=== PATIENT | female | born 1935 | race Caucasian/White ===

== ENCOUNTER 2020-11-14 13:40 | Inpatient (IN) ==
--- NOTE | 2020-11-14 14:37 | Emergency Department Note ---
History of Present Illness General Chief complaint: Weakness Stated complaint: WEAKNESS, VOMITING Time Seen by Provider: 11/14/20 14:19 Source: patient and family (Niece) History of Present Illness Provider complaint: Generalized weakness Onset (ago): week(s) 2 Location: upper extremity, lower extremity, left and right Pain Consistency: + constant (Worsening past 2 days) Maximum Pain Intensity: 0 Quality: + other (Generalized weakness) Relieved By: + none Associated symptoms: + cough (Had a cough which was dry and nonproductive last week resolved on Friday), + fever/chills (Temperature 100 last night), + loss of appetite, + nausea/vomiting (Nausea for a week with vomiting yesterday), + shortness of breath (X3 days) and + weakness; no chest pain and no headaches This is an 84-year-old female who presents with generalized weakness for the past 2 weeks. She states that it has been getting worse over the past 2 days. She states that she can barely stand today and she has been having to use a cane to get around over the past week. She lives with her niece. She states she has not been eating or drinking very much for the past week. She states she feels nauseated anytime she tries to eat anything. She did throw up yesterday. She did have a bowel movement yesterday which was very hard as well. She denies any diarrhea. She denies any abdominal pain. She states that she has no burning on urination but she feels like she has to go frequently and not much comes out. It is yellow. This has been going on for a week. She had a cough last week. It was a dry cough which lasted 3 days and ended on Friday. She is not coughing anymore. She does state that she feels short of breath for the past 3 days which is worse with any effort. She denies any chest discomfort or pain. She did have a tactile fever and chills at home. She states that her temperature was 100 last night. She has not gotten her Covid vaccinations and does not plan to. She does not know of any contact with any one with Covid. S he also noticed a rash to her upper thighs today. It is not itchy or painful. Home Medications Medication Instructions Recorded Confirmed Type alendronate 70 mg PO WK 11/14/20 11/14/20 History atorvastatin 20 mg PO QDL 11/14/20 11/14/20 History calcium carbonate-vitamin D3 1 tab PO QAM 11/14/20 11/14/20 History [Calcium 600 + D(3)] levothyroxine 25 mcg PO QAM 11/14/20 11/14/20 History lisinopril 10 mg PO QAM 11/14/20 11/14/20 History loratadine [Claritin] 10 mg PO DAILY PRN 11/14/20 11/14/20 History metformin 1,000 mg PO QAM 11/14/20 11/14/20 History multivitamin with minerals 1 tab PO QAM 11/14/20 11/14/20 History omega 3-wor-svf-fish oil [Fish Oil] 1 cap PO QAM 11/14/20 11/14/20 History venlafaxine 225 mg PO QAM 11/14/20 11/14/20 History Allergies Allergy/AdvReac Type Severity Reaction Status Date / Time peach Allergy Severe FACIAL Verified 11/14/20 15:58 SWELLING Sulfa (Sulfonamide Allergy Severe DIFFICULTY Verified 11/14/20 15:58 Antibiotics) BREATHING sulfamethoxazole Allergy Severe DIFFICULTY Verified 11/14/20 15:58 BREATHING Past Med/Surg History Medical History Breast cancer Diabetes High cholesterol Surgical History H/O mastectomy H/O: hysterectomy Social History Smoking Status: Never smoker Preferred Language: Iranian Feels Safe at Home: Yes Review of Systems See HPI for pertinent positives & negatives. and A total of 10 systems reviewed and were otherwise negative Physical Exam Vital Signs Vital Signs - 24 hr 11/14/20 13:42 11/14/20 14:20 11/14/20 14:38 Temperature 37 C Temperature Source Temporal Artery Scan Pulse Rate 94 H Pulse Rate from SpO2 Sensor Respiratory Rate 17 16 Respiratory Effort / Characteristics Non-Labored Non-Labored Spontaneous Respiratory Depth Normal Blood Pressure 110/63 Blood Pressure Mean 78 Blood Pressure Position Sitting Pulse Oximetry 94 98 Oxygen Delivery Method Room Air Room Air Room Air Sepsis Recent Fever Within 48 Hours No Sepsis New/Unexplained Change in Mental Status No Sepsis Action Taken by Nursing No Action Required 11/14/20 15:14 11/14/20 15:26 11/14/20 15:30 Temperature Temperature Source Pulse Rate 82 81 Pulse Rate from SpO2 Sensor 82 81 Respiratory Rate 13 14 Respiratory Effort / Characteristics Non-Labored Spontaneous Respiratory Depth Blood Pressure 114/55 L 108/57 L Blood Pressure Mean 74 74 Blood Pressure Position Pulse Oximetry 92 90 Oxygen Delivery Method Sepsis Recent Fever Within 48 Hours Sepsis New/Unexplained Change in Mental Status Sepsis Action Taken by Nursing 11/14/20 15:41 11/14/20 16:00 11/14/20 16:09 Temperature Temperature Source Pulse Rate 80 Pulse Rate from SpO2 Sensor 78 Respiratory Rate 18 Respiratory Effort / Characteristics Non-Labored Spontaneous Non-Labored Spontaneous Respiratory Depth Blood Pressure 104/56 L Blood Pressure Mean 72 Blood Pressure Position Pulse Oximetry 97 Oxygen Delivery Method Sepsis Recent Fever Within 48 Hours Sepsis New/Unexplained Change in Mental Status Sepsis Action Taken by Nursing 11/14/20 16:30 11/14/20 17:00 Temperature Temperature Source Pulse Rate 76 82 Pulse Rate from SpO2 Sensor 77 83 Respiratory Rate 15 14 Respiratory Effort / Characteristics Non-Labored Spontaneous Respiratory Depth Blood Pressure 109/56 L 107/54 L Blood Pressure Mean 73 71 Blood Pressure Position Pulse Oximetry 99 99 Oxygen Delivery Method Sepsis Recent Fever Within 48 Hours Sepsis New/Unexplained Change in Mental Status Sepsis Action Taken by Nursing Constitutional: Vital signs reviewed. Eyes: Pupils are equal round reactive to light. Conjunctiva are noninjected. ENT: Pharynx is clear without erythema or exudate. Mucous membranes are very dry. Neck supple without meningeal signs. Respiratory: Clear to auscultation bilaterally. Breath sounds are equal bilaterally. Cardiovascular: Regular rate and rhythm. No rubs or gallops. GI: Soft, nondistended and nontender. Bowel sounds are present. Musculoskeletal: No peripheral edema. No lower extremity tenderness. Integumentary: No cyanosis. or jaundice. Multiple 1 to 2 cm scattered circular erythematous lesions in the upper thighs bilaterally with central beige discoloration. Most consistent with erythema multiforme. No vesicles are noted. Rash is easily blanchable. No rash to the trunk or upper extremities. Neurological: The patient is awake and alert. No focal deficits. Psychiatric: Normal affect. Not anxious appearing. Course Administered Medications Sodium Chloride (Nss) 500 mls @ 125 mls/hr IV .Q4H YOANA Stop: 12/14/20 14:44 Last Admin: 11/14/20 15:39 Dose: 125 mls/hr Documented by: [id number] Discontinued Medications Magnesium Sulfate/Dextrose (Magnesium Sulfate / D5w) 1 gm in 100 mls @ 100 mls/hr IV Q1H YOANA Stop: 11/14/20 17:20 Last Infusion: 11/14/20 18:45 Dose: 0 mls/hr Documented by: [id number] Admin: 11/14/20 16:39 Dose: 100 mls/hr Documented by: [id number] Infusion: 11/14/20 16:39 Dose: 100 mls/hr Documented by: [id number] Admin: 11/14/20 15:39 Dose: 100 mls/hr Documented by: [id number] Dexamethasone 6 mg/ Syringe 1.5 mls @ 1 mls/min IV ONE ONE Stop: 11/14/20 17:27 Last Admin: 11/14/20 17:56 Dose: 1 mls/min Documented by: [id number] Medical Decision Making Differential Diagnosis Sepsis, UTI, acute kidney injury, pneumonia, COVID-19, dehydration, anemia, bowel obstruction, erythema multiforme Medical Records Attestation: I reviewed the patient's medical records. I did perform a limited focused review of portions of the patient's old chart on the electronic medical record. The patient has had no recent pertinent visits to this hospital. Home Medications Current Medication List: was personally reviewed by me Laboratory Data Attestation: I reviewed the patient's lab results. Result diagrams: 11/14/20 14:15 11/14/20 14:15 Lab Results 11/14/20 11/14/20 11/14/20 Range/Units 14:15 14:15 14:15 WBC 6.30 (4.8-10.8) K/uL RBC 4.47 (4.2-5.4) M/uL Hgb 13.4 (12.0-16.0) g/dL Hct 38.9 (37-47) % MCV 87.0 (80-100) fL MCH 30.0 (25-34) pg MCHC 34.4 (32-36) g/dL RDW Std Deviation 43.2 (36.4-46.3) fL RDW Coeff of Irasema 13.5 (11.5-14.5) % Plt Count 176 (130-400) K/uL MPV 10.8 H (7.4-10.4) fL Immature Gran % (Auto) 0.2 % Neut % (Auto) 77.4 % Lymph % (Auto) 9.5 % [place] % (Auto) 12.9 % Eos % (Auto) 0.0 % Baso % (Auto) 0.0 % Neut # (Auto) 4.88 (1.4-6.5) K/uL Lymph # (Auto) 0.60 L (1.2-3.4) K/uL [place] # (Auto) 0.81 H (0.11-0.59) K/uL Eos # (Auto) 0.00 (0-0.5) K/uL Baso # (Auto) 0.00 (0-0.2) K/uL Immature Gran # (Auto) 0.01 (0.00-0.02) K/uL PT 9.9 (9.0-12.0) Seconds INR 1.0 (0.9-1.1) APTT 26.0 (21.0-31.0) Seconds PTT Ratio 1.0 Sodium 131 L (136-145) mmol/L Potassium 3.8 (3.5-5.1) mmol/L Chloride 97 L (98-107) mmol/L Carbon Dioxide 28 (21-32) mmol/L Anion Gap 6.0 (3-11) BUN 14 (7-18) mg/dl Creatinine 0.98 (0.6-1.2) mg/dl Est Cr Clr Drug Dosing Not Reportable Est GFR ( Amer) 61.8 Est GFR (Non-Af Amer) 53.3 BUN/Creatinine Ratio 13.7 (10-20) Glucose 176 H (70-99) mg/dl Lactate (0.4-2.0) mmol/L Calcium 8.3 L (8.5-10.1) mg/dl Magnesium 1.1 L (1.8-2.4) mg/dl Total Bilirubin 0.5 (0.2-1) mg/dl AST 24 (15-37) U/L ALT 22 (12-78) U/L Alkaline Phosphatase 59 (45-117) U/L Troponin I < 0.015 (0-0.045) ng/ml Total Protein 6.7 (6.4-8.2) gm/dl Albumin 3.0 L (3.4-5.0) gm/dl Globulin 3.7 (2.5-4.0) gm/dl Albumin/Globulin Ratio 0.8 L (0.9-2) Urine Color Urine Appearance (Clear) Urine pH (4.5-7.5) Ur Specific [place] (1.000-1.030) Urine Protein (Negative) Urine Glucose (UA) (Negative) Urine Ketones (Negative) Urine Blood (Negative) Urine Nitrite (Negative) Urine Bilirubin (Negative) Urine Urobilinogen (Negative) Ur Leukocyte Esterase (Negative) Urine WBC (Auto) (0-5) /hpf Urine RBC (Auto) (0-4) /hpf U Hyaline Cast (Auto) (0-5) /lpf U Epithel Cells (Auto) (0-5) /lpf Urine Bacteria (Auto) (Negative) Ur Renal Epithelial Cell COVID-19 Eval Order SARS-CoV-2 (PCR) (Negative) Influenza Type A (PCR) (Neg) Influenza Type B (PCR) (Neg) RSV (RT-PCR) (Neg) 11/14/20 11/14/20 11/14/20 Range/Units 15:05 15:20 15:20 WBC (4.8-10.8) K/uL RBC (4.2-5.4) M/uL Hgb (12.0-16.0) g/dL Hct (37-47) % MCV (80-100) fL MCH (25-34) pg MCHC (32-36) g/dL RDW Std Deviation (36.4-46.3) fL RDW Coeff of Irasema (11.5-14.5) % Plt Count (130-400) K/uL MPV (7.4-10.4) fL Immature Gran % (Auto) % Neut % (Auto) % Lymph % (Auto) % [place] % (Auto) % Eos % (Auto) % Baso % (Auto) % Neut # (Auto) (1.4-6.5) K/uL Lymph # (Auto) (1.2-3.4) K/uL [place] # (Auto) (0.11-0.59) K/uL Eos # (Auto) (0-0.5) K/uL Baso # (Auto) (0-0.2) K/uL Immature Gran # (Auto) (0.00-0.02) K/uL PT (9.0-12.0) Seconds INR (0.9-1.1) APTT (21.0-31.0) Seconds PTT Ratio Sodium (136-145) mmol/L Potassium (3.5-5.1) mmol/L Chloride (98-107) mmol/L Carbon Dioxide (21-32) mmol/L Anion Gap (3-11) BUN (7-18) mg/dl Creatinine (0.6-1.2) mg/dl Est Cr Clr Drug Dosing Est GFR ( Amer) Est GFR (Non-Af Amer) BUN/Creatinine Ratio (10-20) Glucose (70-99) mg/dl Lactate 2.4 H* (0.4-2.0) mmol/L Calcium (8.5-10.1) mg/dl Magnesium (1.8-2.4) mg/dl Total Bilirubin (0.2-1) mg/dl AST (15-37) U/L ALT (12-78) U/L Alkaline Phosphatase (45-117) U/L Troponin I (0-0.045) ng/ml Total Protein (6.4-8.2) gm/dl Albumin (3.4-5.0) gm/dl Globulin (2.5-4.0) gm/dl Albumin/Globulin Ratio (0.9-2) Urine Color Dark Yellow Urine Appearance Clear (Clear) Urine pH 5.0 (4.5-7.5) Ur Specific [place] 1.022 (1.000-1.030) Urine Protein Trace H (Negative) Urine Glucose (UA) Negative (Negative) Urine Ketones 1+ H (Negative) Urine Blood Negative (Negative) Urine Nitrite Negative (Negative) Urine Bilirubin 1+ H (Negative) Urine Urobilinogen Negative (Negative) Ur Leukocyte Esterase Negative (Negative) Urine WBC (Auto) 1-5 (0-5) /hpf Urine RBC (Auto) 0-4 (0-4) /hpf U Hyaline Cast (Auto) 1-5 (0-5) /lpf U Epithel Cells (Auto) >30 H (0-5) /lpf Urine Bacteria (Auto) Negative (Negative) Ur Renal Epithelial Cell Not Reportable COVID-19 Eval Order CovFluRsv at [facility] SARS-CoV-2 (PCR) (Negative) Influenza Type A (PCR) (Neg) Influenza Type B (PCR) (Neg) RSV (RT-PCR) (Neg) 11/14/20 Range/Units 15:20 WBC (4.8-10.8) K/uL RBC (4.2-5.4) M/uL Hgb (12.0-16.0) g/dL Hct (37-47) % MCV (80-100) fL MCH (25-34) pg MCHC (32-36) g/dL RDW Std Deviation (36.4-46.3) fL RDW Coeff of Irasema (11.5-14.5) % Plt Count (130-400) K/uL MPV (7.4-10.4) fL Immature Gran % (Auto) % Neut % (Auto) % Lymph % (Auto) % [place] % (Auto) % Eos % (Auto) % Baso % (Auto) % Neut # (Auto) (1.4-6.5) K/uL Lymph # (Auto) (1.2-3.4) K/uL [place] # (Auto) (0.11-0.59) K/uL Eos # (Auto) (0-0.5) K/uL Baso # (Auto) (0-0.2) K/uL Immature Gran # (Auto) (0.00-0.02) K/uL PT (9.0-12.0) Seconds INR (0.9-1.1) APTT (21.0-31.0) Seconds PTT Ratio Sodium (136-145) mmol/L Potassium (3.5-5.1) mmol/L Chloride (98-107) mmol/L Carbon Dioxide (21-32) mmol/L Anion Gap (3-11) BUN (7-18) mg/dl Creatinine (0.6-1.2) mg/dl Est Cr Clr Drug Dosing Est GFR ( Amer) Est GFR (Non-Af Amer) BUN/Creatinine Ratio (10-20) Glucose (70-99) mg/dl Lactate (0.4-2.0) mmol/L Calcium (8.5-10.1) mg/dl Magnesium (1.8-2.4) mg/dl Total Bilirubin (0.2-1) mg/dl AST (15-37) U/L ALT (12-78) U/L Alkaline Phosphatase (45-117) U/L Troponin I (0-0.045) ng/ml Total Protein (6.4-8.2) gm/dl Albumin (3.4-5.0) gm/dl Globulin (2.5-4.0) gm/dl Albumin/Globulin Ratio (0.9-2) Urine Color Urine Appearance (Clear) Urine pH (4.5-7.5) Ur Specific [place] (1.000-1.030) Urine Protein (Negative) Urine Glucose (UA) (Negative) Urine Ketones (Negative) Urine Blood (Negative) Urine Nitrite (Negative) Urine Bilirubin (Negative) Urine Urobilinogen (Negative) Ur Leukocyte Esterase (Negative) Urine WBC (Auto) (0-5) /hpf Urine RBC (Auto) (0-4) /hpf U Hyaline Cast (Auto) (0-5) /lpf U Epithel Cells (Auto) (0-5) /lpf Urine Bacteria (Auto) (Negative) Ur Renal Epithelial Cell COVID-19 Eval Order SARS-CoV-2 (PCR) POSITIVE A* (Negative) Influenza Type A (PCR) Negative (Neg) Influenza Type B (PCR) Negative (Neg) RSV (RT-PCR) Negative (Neg) Imaging Data Radiologist's Impression: Chest/Abdomen X-ray 11/14/20 14:37 XR abdomen 2V w PA chest HISTORY: 84 years-old Female cough/vomiting eval for pna/obstr acute cough with vomiting COMPARISON: Acute abdominal series radiographs 11/05/2014 TECHNIQUE: Portable AP view of the chest with erect and supine views of the abdomen FINDINGS: Cardiomediastinal and hilar silhouettes are within normal limits. Calcified plaque of the thoracic aorta. No pneumothorax, pleural effusion or overt pulmonary edema. Unchanged interstitial opacities of the lung bases suggestive of atelectasis/scarring. Surgical clip of the left axilla. Bones appear grossly intact. No pneumatosis or pneumoperitoneum. On the supine view there is a geometric central lucency of the abdomen which is not present on the AP view, likely artifactual. Nonobstructive bowel gas pattern. No urolith. Pelvic basin calcifications suggestive of phleboliths. 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 IMPRESSION: 1. No acute process of the chest. 2. Nonobstructive bowel gas pattern. ACT 112: Negative or not required by law. The above report was generated using voice recognition software. It may contain grammatical, syntax or spelling errors. Electronically signed by: Smooth Avila M.D. 11/14/2020 4:34 PM ECG Data Attestation: I personally reviewed and interpreted this ECG as follows: Indication: + weakness Rate (beats per minute): 84 Rhythm: + normal sinus ECG Intervals/blocks: + Short ND (ND interval 104 ms) ECG [place]: + Normal ECG ST segments: no ST elevation ECG Findings: no PVCs MDM Narrative I did evaluate the patient as noted above. The patient is presenting with generalized weakness as well as multiple other symptoms. She has been weak for about 2 weeks but it has been getting worse over the past 2 days. She admits to not eating or drinking very much due to nausea over the past week. She has been urinating infrequently but has urgency. She appears clinically very dehydrated. She has a rash to her upper thighs which appears most likely to be erythema multiforme. It is nonpruritic and nonpainful. It is easily blanchable. It does not resemble erythema migrans. She has also had fever and cold symptoms raising the concern for COVID-19 and sepsis. She was placed in respiratory isolation. IV access was established. I did treat her with normal saline IV. I did place an order for continuous cardiac monitoring. The monitor showed normal sinus rhythm at a rate of 88 bpm. I did order and personally review the patient's 12-lead EKG as described above. She has a shortened ND interval without delta waves. No acute ischemia is noted. I did order and personally reviewed the images of the patient's chest and abdominal x-ray as described above. There is no evidence of pneumonia or bowel obstruction. I did order a urine analysis. She does not have a UTI. I did order and review the patient's blood work as noted in the electronic medical record. CBC does not demonstrate leukocytosis, anemia or thrombocytopenia. Electrolytes are remarkable for a s odium of 131. Also her magnesium is 1.1. I did treat her with 2 g of IV magnesium. Lactate is elevated. Troponin is negative. COVID-19 testing came back positive. I did discuss the test results with the patient's niece. She will be hospitalized for further care and evaluation. The nurse tells me that the O2 saturation dropped to 88% on room air and so she was placed on 2 L of oxygen via nasal cannula. I did treat her with Decadron 6 mg IV. I did discuss the case with the hospitalist and case technician. Impression & Plan COVID-19, Hypomagnesemia, Generalized weakness, Hyponatremia Discharge Plan Visit Data Chief Complaint: Weakness Stated Complaint: WEAKNESS, VOMITING ED Provider: Luis Fernando Bella Discharge Problem: COVID-19, Hypomagnesemia, Generalized weakness, Hyponatremia Patient Disposition: Being Evaluated by Hospitalist Forms Stand Alone Forms: My [facility] Prescriptions Prescriptions: No Action metformin 500 mg tablet 1,000 mg PO QAM RF: 0 venlafaxine 75 mg capsule,extended release 24hr 225 mg PO QAM RF: 0 atorvastatin 20 mg tablet 20 mg PO QDL RF: 0 alendronate 70 mg tablet 70 mg PO WK RF: 0 calcium carbonate-vitamin D3 [Calcium 600 + D(3)] 600 mg(1,500mg) -200 unit Tablet 1 tab PO QAM RF: 0 levothyroxine 25 mcg tablet 25 mcg PO QAM RF: 0 lisinopril 10 mg tablet 10 mg PO QAM RF: 0 multivitamin with minerals Tablet 1 tab PO QAM RF: 0 loratadine [Claritin] 10 mg Tablet 10 mg PO DAILY PRN (Reason: Congestion) RF: 0 omega 3-bqb-lfy-fish oil [Fish Oil] 1,000 mg (120 mg-180 mg) Capsule 1 cap PO QAM RF: 0 Referrals Referrals: Emory Mills MD [Primary Care Provider] -
[2020-11-14] MEDS ORDERED: SODIUM CHLORIDE 0.9% 500 ML IV SCH (14:45)
[2020-11-14 14:55] LABS: Hematocrit (blood only) 38.9 % (37-47); Hemoglobin 13.4 g/dL (12.0-16.0); Immature Granulocytes # (auto) 0.01 K/uL (0.00-0.02); Immature Granulocytes % (auto) 0.2 %; Lymphocytes % (auto) 9.5 %; Mean Corpuscular Hgb Conc 34.4 g/dL (32-36); Mean Platelet Volume 10.8 fL (7.4-10.4); Monocytes # (auto) 0.81 K/uL (0.11-0.59); Monocytes % (auto) 12.9 %; Neutrophils # (auto) 4.88 K/uL (1.4-6.5); Neutrophils % (auto) 77.4 %; Platelet Count 176 K/uL (130-400); RDW Coefficient of Variation 13.5 % (11.5-14.5); RDW Standard Deviation 43.2 fL (36.4-46.3); Red Blood Count 4.47 M/uL (4.2-5.4)
[2020-11-14 15:10] LABS: Alanine Aminotransferase 22 U/L (12-78); Aspartate Aminotransferase 24 U/L (15-37); BUN Creatinine Ratio 13.7 (10-20); Blood Urea Nitrogen 14 mg/dl (7-18); Calcium 8.3 mg/dl (8.5-10.1); Carbon Dioxide 28 mmol/L (21-32); Chloride 97 mmol/L (98-107); Est GFR (African American) 61.8; Est GFR (Non-African American) 53.3; Glucose 176 mg/dl (70-99); Magnesium 1.1 mg/dl (1.8-2.4); Potassium 3.8 mmol/L (3.5-5.1); Sodium 131 mmol/L (136-145)
[2020-11-14 15:11] LABS: Prothrombin Time 9.9 Seconds (9.0-12.0)
[2020-11-14 15:15] LABS: Albumin Globulin Ratio 0.8 (0.9-2); Alkaline Phosphatase 59 U/L (45-117); Bilirubin,Total 0.5 mg/dl (0.2-1); Globulin 3.7 gm/dl (2.5-4.0); Total Protein 6.7 gm/dl (6.4-8.2); Troponin I < 0.015 ng/ml (0-0.045)
[2020-11-14] MEDS: MAGNESIUM SULFATE / D5W 1 GM/100 ML BAG IV SCH ×2 (15:39→16:39)
[2020-11-14 15:58] LABS: Appearance Urine Clear (Clear); Bacteria Urine Automated Negative (Negative); Blood Urine Negative (Negative); Color Urine Dark Yellow; Epithelial Cell Urine Auto >30 /lpf (0-5); Glucose Urine UA Negative (Negative); Ketones Urine 1+ (Negative); Leukocyte Esterase Urine Negative (Negative); Nitrite Urine Negative (Negative); Protein Urine Trace (Negative); RBC Urine Automated 0-4 /hpf (0-4); Specific Gravity Urine 1.022 (1.000-1.030); Urobilinogen Urine Negative (Negative)
[2020-11-14 16:02] LABS: Bilirubin Urine 1+ (Negative)
[2020-11-14 16:12] LABS: Influenza A virus by PCR Negative (Neg); Influenza B virus by PCR Negative (Neg); RSV by PCR Negative (Neg)
[2020-11-14 16:21] LABS: SARS CoV2 RNA(COVID-19) InHosp POSITIVE (Negative)
--- NOTE | 2020-11-14 16:35 | XRay Report ---
XR abdomen 2V w PA chest HISTORY: 84 years-old Female cough/vomiting eval for pna/obstr acute cough with vomiting COMPARISON: Acute abdominal series radiographs 11/05/2014 TECHNIQUE: Portable AP view of the chest with erect and supine views of the abdomen FINDINGS: Cardiomediastinal and hilar silhouettes are within normal limits. Calcified plaque of the thoracic ao rta. No pneumothorax, pleural effusion or overt pulmonary edema. Unchanged interstitial opacities of the lung bases suggestive of atelectasis/scarring. Surgical clip of the left axilla. Bones appear rhea ssly intact. No pneumatosis or pneumoperitoneum. On the supine view there is a geometric central lucency of the ab domen which is not present on the AP view, likely artifactual. Nonobstructive bowel gas pattern. No u rolith. Pelvic basin calcifications suggestive of phleboliths. Severe right and moderate left hip ost eoarthritis. IMPRESSION: 1. No acute process of the chest. 2. Nonobstructive bowel gas pattern. ACT 112: Negative or not required by law. The above report was generated using voice recognition software. It may contain grammatical, syntax o r spelling errors. Electronically signed by: Smooth Avila M.D. 11/14/2020 4:34 PM
[2020-11-14] MEDS ORDERED: dexAMETHasone 6 MG in SYRINGE 0 ML IV ONE (17:26)
--- NOTE | 2020-11-14 17:37 | History & Physical Report ---
Date of Service November 14, 2020 Assessment & Plan (1) Acute hypoxemic respiratory failure due to COVID-19: - Admit to PCU, airborne precautions - Lactic acid initially elevated at 2.4, follow repeat - Hypomagnesemia, 1.1 on admission, being replaced via IV with 2 g - Start on dexamethasone now, continue daily dosing 6 mg IV - Currently on 2 L O2 due to hypoxia with sats of 88%, monitor - Discussed with pt niece regarding intubation - states that the patient would not want intubated in the event of needing airway support in this setting of respiratory distress with COVID-19 infection. - Supportive therapy and pulmonary toilet with flutter/incentive spirometry - PT/OT (2) Hypomagnesemia: -Noted on admission, mag = 1.1, replace via IV (3) Diabetes: - Holding metformin, ISS with accuchecks achs - Check A1C with am labs (4) High cholesterol: - Cont atorvastatin 20 mg daily (5) HTN (hypertension): - Continue lisinopril 10 mg daily (6) Nausea: - Zofran prn (7) Anxiety: - Hx of such, continue Effexor 225 mg daily (8) DVT prophylaxis: - teds CODE: DNR/DNI Dispo: From home, likely to remain in the hospital x 2 days. History of Present Illness Primary Care Provider: Emory Mills MD This is 84 yo F with PMHx of DM II, HLD, anxiety, nausea and breast cancer who presents with several complaints including weakness, shortness of breath, headache and nausea/vomiting to the ER. History is obtained from her niece, Aysha via phone in the ER room, as the patient is COVID-19 positive. On Friday, pt began feeling worse with increased weakness and shortness of breath, and at baseline does not require O2. Last evening developed nausea and vomiting, so her niece made her an appointment with PCP, however after conversation with PCP nurse, they preferred that she went to the ER and sent her here. Aysha denies any known COVID-19 contacts, as she lives with the patient wh o does not travel or goes out, as she does basic things like grocery shopping, etc, due to the COVID-19 pandemic. She reports pt had a low grade fever of 100, headache, poor appetite, stomach pain, but no diarrhea. Pt took morning medications and has not had issues keeping them down. Allergies Allergy/AdvReac Type Severity Reaction Status Date / Time peach Allergy Severe FACIAL Verified 11/14/20 15:58 SWELLING Sulfa (Sulfonamide Allergy Severe DIFFICULTY Verified 11/14/20 15:58 Antibiotics) BREATHING sulfamethoxazole Allergy Severe DIFFICULTY Verified 11/14/20 15:58 BREATHING Home Medications Medication Instructions Recorded Confirmed Type alendronate 70 mg PO WK 11/14/20 11/14/20 History atorvastatin 20 mg PO QDL 11/14/20 11/14/20 History calcium carbonate-vitamin D3 1 tab PO QAM 11/14/20 11/14/20 History [Calcium 600 + D(3)] levothyroxine 25 mcg PO QAM 11/14/20 11/14/20 History lisinopril 10 mg PO QAM 11/14/20 11/14/20 History loratadine [Claritin] 10 mg PO DAILY PRN 11/14/20 11/14/20 History metformin 1,000 mg PO QAM 11/14/20 11/14/20 History multivitamin with minerals 1 tab PO QAM 11/14/20 11/14/20 History omega 8-dss-wcd-fish oil [Fish Oil] 1 cap PO QAM 11/14/20 11/14/20 History venlafaxine 225 mg PO QAM 11/14/20 11/14/20 History Past Med/Surg History Medical History Breast cancer Diabetes High cholesterol Surgical History H/O mastectomy H/O: hysterectomy Social History Smoking Status: Never smoker Preferred Language: Montenegrin Feels Safe at Home: Yes Review of Systems Review of Systems: As per HPI. Constitutional: No fever, sweats or chills, +GARCIA Eyes: No diplopia, no worsening or blurred vision ENT: normal hearing, no trouble swallowing Respiratory: No cough, sputum, +dyspnea on exertion Cardiovascular: No chest pain, tightness or palpitations Abdomen: No pain,+ nausea, + vomiting, no diarrhea or constipation Musculoskeletal: No joint pain, calf pain, swelling Neurologic: + weakness, no numbness/tingling, or balance problems Psychiatric: No anxiety or depression Skin: No rash or itch Physical Exam Physical Exam: Please refer to attending addendum for physical exam as I did not see the patient in person due to COVID-19 infection. Results & Data Results & Data ([facility]) Vital Signs (Past 12 Hours) Vital Signs Temp Pulse Resp BP Pulse Ox 11/14/20 17:00 82 14 107/54 L 99 11/14/20 16:30 76 15 109/56 L 99 11/14/20 16:00 80 18 104/56 L 97 11/14/20 15:30 81 14 108/57 L 90 11/14/20 15:14 82 13 114/55 L 92 11/14/20 14:38 16 98 11/14/20 13:42 37 C 94 H 17 110/63 94 Diagnostic Findings XR abdomen 2V w PA chest HISTORY: 84 years-old Female cough/vomiting eval for pna/obstr acute cough with vomiting COMPARISON: Acute abdominal series radiographs 11/05/2014 TECHNIQUE: Portable AP view of the chest with erect and supine views of the abdomen FINDINGS: Cardiomediastinal and hilar silhouettes are within normal limits. Calcified plaque of the thoracic aorta. No pneumothorax, pleural effusion or overt pulmonary edema. Unchanged interstitial opacities of the lung bases suggestive of atelectasis/scarring. Surgical clip of the left axilla. Bones appear grossly intact. No pneumatosis or pneumoperitoneum. On the supine view there is a geometric central lucency of the abdomen which is not present on the AP view, likely artifactual. Nonobstructive bowel gas pattern. No urolith. Pelvic basin calcifications suggestive of phleboliths. 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 IMPRESSION: 1. No acute process of the chest. 2. Nonobstructive bowel gas pattern. ECG Additional Comments: 14-NOV-2020 14:19:21 [facility]-EDSTAT ROUTINE RETRIEVAL Sinus rhythm with short [place] Otherwise normal ECG When compared with ECG of 05-NOV-2014 16:08, Premature ventricular complexes are no longer Present 25mm/s 10mm/mV 150Hz 9.0.9 12SL 241 HD FABRIZIO: 12 Referred by: REFERRED SELF Unconfirmed Vent. rate 84 BPM [place] interval 104 ms QRS duration 86 ms QT/QTc 378/446 ms Code Status & VTE Plan Code Status DNR/DNI - discussed with the patients Aysha coello Supervising Physician Co-Signing Physician Notes ROS-No Headache, No Visual Changes, +Nausea, +Vomiting, + Fever, + Chills, No Neck Pain or Stiffness, No Chest Pain, No Palpitations, + SOB, + REYNOLDS, + Cough, No Sputum, No Wheezing, No Abdominal Pain, No Diarrhea, No Hematemesis, No Hemoptysis, No Unexpected Weight Loss, No Flank pain, No Melena, No Hematochezia, No Frequency, No Urgency, No Burning, No Hematuria, No Rashes, No Diaphoresis. Appetite is Normal Physical Exam Gen-AAO x 3, NAD, Afebrile Here Head-NCAT, EOMI, PERRLA, Anicteric Sclera, No Posterior Pharyngeal Erythema Neck-Supple, No JVD, No Thyromegaly, No Masses, No LAD, No Bruits Lungs-Clear to Auscultation Bilaterally, No Rales, No Rhonchi, No Wheezing, No Crepitus Chest-No S4, +S1, +S2, No S3, No Murmurs, No Rubs, No Gallops, No Ectopy Abdomen-Soft, Bowel Sounds Present, Non Tender, Non Distended, No Hepatomegaly, No Splenomegaly, No Palpable Masses, No Rebound, No Rigidity, No Guarding Musculoskeletal-Full Range of Motion Bilaterally, No CVAT Extremities-No Cyanosis, No Clubbing, No Edema, +EM Rash Nuero-Cranial Nerves II-XII grossly intact, Motor WNL, DTRs WNL, Strength WNL, Non Focal Psych-Normal Mood
[2020-11-14] MEDS ORDERED: GLUCOSE 40% GEL 15 GM TUBE PO PRN (19:52)
[2020-11-14] MEDS ORDERED: GLUCOSE 10 TABS/TUBE PO PRN (19:52)
[2020-11-14] MEDS ORDERED: LORATADINE 10 MG TAB PO PRN (19:52)
[2020-11-14] MEDS ORDERED: DEXTROSE 50% 50 ML SYRINGE IV PRN (19:52)
[2020-11-14] MEDS ORDERED: CARBOHYDRATES FOR HYPOGLYCEMIA PO PRN (19:52)
[2020-11-14] MEDS ORDERED: GLUCAGON FOR INJ 1 MG VIAL SQ PRN (19:52)
[2020-11-14] MEDS: INSULIN ASPART 100 UNITS/ML 3 ML PEN SC SCH (21:49)
[2020-11-14] MEDS: SODIUM CHLORIDE 0.9% 1000ML 1,000 ML IV SCH (23:45)
[2020-11-15] MEDS: LEVOTHYROXINE SODIUM 25 MCG TABLET PO SCH (05:50)
[2020-11-15 07:32] LABS: Hematocrit (blood only) 37.9 % (37-47); Hemoglobin 12.8 g/dL (12.0-16.0); Mean Corpuscular Hemoglobin 29.6 pg (25-34); Mean Corpuscular Hgb Conc 33.8 g/dL (32-36); Mean Corpuscular Volume 87.5 fL (80-100); Mean Platelet Volume 11.2 fL (7.4-10.4); Platelet Count 184 K/uL (130-400); RDW Coefficient of Variation 13.6 % (11.5-14.5); RDW Standard Deviation 44.2 fL (36.4-46.3); Red Blood Count 4.33 M/uL (4.2-5.4); White Blood Count 3.81 K/uL (4.8-10.8)
[2020-11-15 07:55] LABS: Albumin Level 2.7 gm/dl (3.4-5.0); BUN Creatinine Ratio 18.5 (10-20); Calcium 7.9 mg/dl (8.5-10.1); Creatinine Clr Calc Pharmacy 45.5 ml/min; Est GFR (African American) 92.9; Est GFR (Non-African American) 80.1; Magnesium 1.9 mg/dl (1.8-2.4); Potassium 4.1 mmol/L (3.5-5.1)
[2020-11-15 08:00] LABS: Albumin Globulin Ratio 0.7 (0.9-2); Bilirubin,Total 0.4 mg/dl (0.2-1); Globulin 3.8 gm/dl (2.5-4.0); Total Protein 6.5 gm/dl (6.4-8.2)
[2020-11-15] MEDS: SODIUM CHLORIDE 0.9% 1000ML 1,000 ML IV SCH (08:22)
[2020-11-15] MEDS: dexAMETHasone 6 MG in SYRINGE 0 ML IV SCH (08:22)
[2020-11-15] MEDS: lisinopril 10 MG TAB PO SCH (08:23)
[2020-11-15] MEDS: CEROVITE ADV FORMULA TAB PO SCH (08:23)
[2020-11-15] MEDS: OMEGA-3 (PURIFIED FISH OIL) 1 GM CAP PO SCH (08:23)
[2020-11-15] MEDS: VENLAFAXINE HCL XR 75 MG CAPXR PO SCH (08:23)
[2020-11-15] MEDS: CALCIUM 600MG + VIT D 400 IU TAB PO SCH (08:23)
[2020-11-15] MEDS: INSULIN ASPART 100 UNITS/ML 3 ML PEN SC SCH ×4 (08:23→21:34)
[2020-11-15 08:43] LABS: Estimated Average Glucose 134 mg/dl; Hemoglobin A1C 6.3 % (4.5-5.6)
[2020-11-15] MEDS: ATORVASTATIN 20 MG TAB PO SCH (11:10)
--- NOTE | 2020-11-15 12:03 | Hospitalist Progress Note ---
Date of Service November 15, 2020 Assessment & Plan (1) Acute hypoxemic respiratory failure due to COVID-19: Patient is 84-year-old female with past medical history of diabetes mellitus type 2, hypertension, hyperlipidemia and anxiety presented to the ED with worsening shortness of breath. She was found to be Covid positive. Admission patient was on 1 L of nasal cannula. Currently she is on room air. Chest x-ray without any concerning findings. Continue with Decadron for now. Patient remains afebrile and hemodynamically stable. BC with mild leukopenia. Cultures negative thus far. Work with PT/OT today. Assess for any oxygen need for the next 24 hours, if negative can be discharged tomorrow. D/C IVF. (2) Hypomagnesemia: Repleted (3) Diabetes: - Holding metformin, ISS with accuchecks achs - HgA1c at 6.3 (4) High cholesterol: - Cont atorvastatin 20 mg daily (5) HTN (hypertension): - Continue lisinopril 10 mg daily (6) Nausea: - Zofran prn (7) Anxiety: - Continue Effexor 225 mg daily (8) DVT prophylaxis: - teds CODE: DNR/DNI Dispo: From home, likely to remain in the hospital x 2 days. Admission and Anticipated Discharge Date Admission Date: November 14, 2020 Subjective This morning patient is awake, alert and oriented x3. Please she is on room air. Denies any shortness of breath or any cough. Denies any fever. Denies any chest pain, abdominal pain or dysuria. Reports appetite is good. Review of Systems Review of Systems: All systems reviewed & are unremarkable except as noted in HPI & below Physical Exam Physical Exam: General: A&Ox3, does not appear to be in any distress HENT: NCAT, MMM, EOMI Eyes: PERRLA Neck: Supple, normal range of motion CVS: normal rate and rhythm Resp: b/l coarse breath sounds Abdomen: Soft, ND/NT Extremities: No c/c/e Neuro: face symmetric, no gross focal deficits appreciated Skin: warm and dry, no rashes/lesions/errythema MSK: no joint swelling/erythema Results & Data Results & Data ([facility]) Vital Signs (Past 12 Hours) Vital Signs Temp Pulse Resp BP Pulse Ox 11/15/20 11:09 36.7 C 74 18 118/60 93 11/15/20 07:27 36.7 C 69 12 126/67 95 11/15/20 06:51 93 11/15/20 05:55 20 96 11/15/20 05:00 18 99 11/15/20 04:00 18 97 11/15/20 03:07 36.9 C 65 18 128/68 97 11/15/20 03:00 18 97 11/15/20 02:00 18 96 11/15/20 00:00 18 98
--- NOTE | 2020-11-15 12:34 | Electrocardiogram Report ---
Test Reason : Blood Pressure : / mmHG Vent. Rate : 084 BPM Atrial Rate : 084 BPM P-R Int : 104 ms QRS Dur : 086 ms QT Int : 378 ms P-R-T Axes : 065 052 077 degrees QTc Int : 446 ms Sinus rhythm with short [place] Otherwise normal ECG When compared with ECG of 05-NOV-2014 16:08, Premature ventricular complexes are no longer Present Confirmed by Christopher Portillo ([id number]) on 11/15/2020 12:33:46 PM Referred By: REFERRED SELF Confirmed By:Christopher Portillo
[2020-11-15] MEDS ORDERED: ACETAMINOPHEN 325 MG TAB ONE (19:34)
[2020-11-15] MEDS: ACETAMINOPHEN 325 MG TAB PO PRN (19:38)
[2020-11-16] MEDS: LEVOTHYROXINE SODIUM 25 MCG TABLET PO SCH (06:13)
[2020-11-16] MEDS: ACETAMINOPHEN 325 MG TAB PO PRN (06:13)
[2020-11-16 07:26] LABS: Hematocrit (blood only) 35.4 % (37-47); Hemoglobin 12.1 g/dL (12.0-16.0); Mean Corpuscular Hemoglobin 29.5 pg (25-34); Mean Corpuscular Hgb Conc 34.2 g/dL (32-36); Mean Corpuscular Volume 86.3 fL (80-100); Mean Platelet Volume 10.8 fL (7.4-10.4); Platelet Count 220 K/uL (130-400); RDW Coefficient of Variation 13.6 % (11.5-14.5); RDW Standard Deviation 43.2 fL (36.4-46.3)
[2020-11-16 07:55] LABS: Albumin Level 2.4 gm/dl (3.4-5.0); BUN Creatinine Ratio 14.4 (10-20); Calcium 7.7 mg/dl (8.5-10.1); Creatinine Clr Calc Pharmacy 38.4 ml/min; Est GFR (African American) 75.6; Est GFR (Non-African American) 65.2; Potassium 3.9 mmol/L (3.5-5.1)
[2020-11-16 07:58] LABS: Albumin Globulin Ratio 0.7 (0.9-2); Bilirubin,Total 0.4 mg/dl (0.2-1); Globulin 3.5 gm/dl (2.5-4.0); Total Protein 5.9 gm/dl (6.4-8.2)
[2020-11-16] MEDS: lisinopril 10 MG TAB PO SCH (09:02)
[2020-11-16] MEDS: CEROVITE ADV FORMULA TAB PO SCH (09:02)
[2020-11-16] MEDS: dexAMETHasone 6 MG in SYRINGE 0 ML IV SCH (09:02)
[2020-11-16] MEDS: OMEGA-3 (PURIFIED FISH OIL) 1 GM CAP PO SCH (09:03)
[2020-11-16] MEDS: CALCIUM 600MG + VIT D 400 IU TAB PO SCH (09:03)
[2020-11-16] MEDS: VENLAFAXINE HCL XR 75 MG CAPXR PO SCH (09:03)
[2020-11-16] MEDS: INSULIN ASPART 100 UNITS/ML 3 ML PEN SC SCH ×4 (09:03→20:39)
--- NOTE | 2020-11-16 11:48 | Discharge Summary ---
Date of Service November 16, 2020 Admission HPI Per Admitting Provider This is 84 yo F with PMHx of DM II, HLD, anxiety, nausea and breast cancer who presents with several complaints including weakness, shortness of breath, headache and nausea/vomiting to the ER. History is obtained from her niece, Aysha via phone in the ER room, as the patient is COVID-19 positive. On Friday, pt began feeling worse with increased weakness and shortness of breath, and at baseline does not require O2. Last evening developed nausea and vomiting, so her niece made her an appointment with PCP, however after conversation with PCP nurse, they preferred that she went to the ER and sent her here. Aysha denies any known COVID-19 contacts, as she lives with the patient who does not travel or goes out, as she does basic things like grocery shopping, etc, due to the COVID-19 pandemic. She reports pt had a low grade fever of 100, headache, poor appetite, stomach pain, but no diarrhea. Pt took morning medications and has not had issues keeping them down. Admission Exam Per Admitting Provider As per HPI. Constitutional: No fever, sweats or chills, +GARCIA Eyes: No diplopia, no worsening or blurred vision ENT: normal hearing, no trouble swallowing Respiratory: No cough, sputum, +dyspnea on exertion Cardiovascular: No chest pain, tightness or palpitations Abdomen: No pain,+ nausea, + vomiting, no diarrhea or constipation Musculoskeletal: No joint pain, calf pain, swelling Neurologic: + weakness, no numbness/tingling, or balance problems Psychiatric: No anxiety or depression Skin: No rash or itch Principal Diagnosis Acute hypoxemic respiratory failure due to COVID-19: Discharge Exam General: A&Ox3, does not appear to be in any distress HENT: NCAT, MMM, EOMI Eyes: PERRLA Neck: Supple, normal range of motion CVS: normal rate and rhythm Resp: b/l coarse breath sounds Abdomen: Soft, ND/NT Extremities: No c/c/e Neuro: face symmetric, no gross focal deficits appreciated Skin: warm and dry, no rashes/lesions/errythema MSK: no joint swelling/erythema Discharge Data Allergies Allergy/AdvReac Type Severity Reaction Status Date / Time peach Allergy Severe FACIAL Verified 11/14/20 15:58 SWELLING Sulfa (Sulfonamide Allergy Severe DIFFICULTY Verified 11/14/20 15:58 Antibiotics) BREATHING sulfamethoxazole Allergy Severe DIFFICULTY Verified 11/14/20 15:58 BREATHING Consultations 11/14/20 17:10 ED Decision to Admit Stat Hospital Course (1) Acute hypoxemic respiratory failure due to COVID-19: Patient is 84-year-old female with past medical history of diabetes mellitus type 2, hypertension, hyperlipidemia and anxiety presented to the ED with worsening shortness of breath. She was found to be Covid positive. Patient received a course of Decadron. Prior to discharge patient was weaned down to room air at rest and with ambulation. She was requiring 2 L of nasal cannula at nighttime. Patient was discharged on 2 L of nasal cannula at nighttime. The day of discharge patient was hemodynamically stable. Did not have any active complaints. Denies any chest pain, shortness of breath, cough or any other concerns. (2) Hypomagnesemia: Repleted (3) Diabetes: - HgA1c at 6.3 (4) High cholesterol: - Cont atorvastatin 20 mg daily (5) HTN (hypertension): - Continue lisinopril 10 mg daily (6) Nausea: - Zofran prn (7) Anxiety: - Continue Effexor 225 mg daily (8) DVT prophylaxis: - teds Total Time Total Time Spent Total Time Spent (In Minutes): 35 Discharge Plan Discharge Items Patient Disposition: Home - Self-Care Reason For Visit: COVID-19,HYPOXIA Discharge Diagnosis: COVID Activity: Resume your previous activity Non-emergency contact: Primary Care Provider Call non-emergency contact if: your symptoms worsen Follow-up/Referrals: Emory Mills MD [Primary Care Provider] - (Date & Time 11/20/2020 1:40 PM Provider Donya Recinos PA-C Department [facility] PLEASE NOTE THAT THIS IS A TELEPHONE APPOINTMENT. YOUR PROVIDER WILL CALL YOU AT THE APPOINTMENT TIME. IF YOU HAVE ANY QUESTIONS REGARDING THIS APPOINTMENT, PLEASE CALL ) Diet: Heart Healthy Addtl Attending Provider Instructions: Follow-up with your primary care physician within 1 week. You are being discharged on 2 L of nasal cannula oxygen at nighttime. Your test for COVID-19 came back as positive, which means you are infected with the novel coronavirus. We need to continue the following important precautions: Quarantine yourself in your home until: you have had no fever for at least 24 hours (that is 1 full day of no fever without the use of medicine that reduces fevers) AND other symptoms have improved (for example, when your cough or shortness of breath have improved) AND at least 10 days have passed since your symptoms first appeared. If you live with others, isolate yourself to a single room away from them and avoid any contact during the quarantine time. Wash your hands frequently and cover your cough. Pending Studies at Discharge: No Stand-Alone Forms: My [facility] [employer], Smoking Cessation Medications and DC Order Prescriptions: Continued metformin 500 mg tablet 1,000 mg PO QAM RF: 0 venlafaxine 75 mg capsule,extended release 24hr 225 mg PO QAM RF: 0 atorvastatin 20 mg tablet 20 mg PO QDL RF: 0 alendronate 70 mg tablet 70 mg PO WK RF: 0 calcium carbonate-vitamin D3 [Calcium 600 + D(3)] 600 mg(1,500mg) -200 unit Tablet 1 tab PO QAM RF: 0 levothyroxine 25 mcg tablet 25 mcg PO QAM RF: 0 lisinopril 10 mg tablet 10 mg PO QAM RF: 0 multivitamin with minerals Tablet 1 tab PO QAM RF: 0 loratadine [Claritin] 10 mg Tablet 10 mg PO DAILY PRN (Reason: Congestion) RF: 0 omega 6-omo-dbf-fish oil [Fish Oil] 1,000 mg (120 mg-180 mg) Capsule 1 cap PO QAM RF: 0 Discharge Orders: Discharge Order (Routine); Ordered 11/16/20 Ordered By: Vince Lackey Admission Data Admit Date/Time: 11/14/20 17:49 Attending Provider: Vince Lackey Admit Provider: Tim Jamison Primary Care Provider: Emory Mills Other Providers: Tim Jamison
[2020-11-16] MEDS: ATORVASTATIN 20 MG TAB PO SCH (13:06)
--- NOTE | 2020-11-16 13:53 | Hospitalist Progress Note ---
Date of Service November 16, 2020 Assessment & Plan (1) Acute hypoxemic respiratory failure due to COVID-19: Patient is 84-year-old female with past medical history of diabetes mellitus type 2, hypertension, hyperlipidemia and anxiety presented to the ED with worsening shortness of breath. She was found to be Covid positive. Currently remains on room air. Overall doing okay. Hemodynamically stable. Continue with Decadron. Patient plan was to discharge patient on 2 L of nasal cannula at nighttime. However, as per rn complex care nocOX needs to be done. It has been ordered. Patient did have two-step test and did not require any oxygen. (2) Hypomagnesemia: Repleted (3) Diabetes: - HgA1c at 6.3 (4) High cholesterol: - Cont atorvastatin 20 mg daily (5) HTN (hypertension): - Continue lisinopril 10 mg daily (6) Nausea: - Zofran prn (7) Anxiety: - Continue Effexor 225 mg daily (8) DVT prophylaxis: - teds Admission and Anticipated Discharge Date Admission Date: November 14, 2020 Subjective Doing okay this morning. Currently on room air at rest. Denies any shortness of breath, cough, fever, abdominal pain, diarrhea or dysuria. Appetite is poor though. Rest of the review of system is negative. Review of Systems Review of Systems: All systems reviewed & are unremarkable except as noted in HPI & below Physical Exam Physical Exam: General: A&Ox3, does not appear to be in any distress HENT: NCAT, MMM, EOMI Eyes: PERRLA Neck: Supple, normal range of motion CVS: normal rate and rhythm Resp: b/l coarse breath sounds Abdomen: Soft, ND/NT Extremities: No c/c/e Neuro: face symmetric, no gross focal deficits appreciated Skin: warm and dry, no rashes/lesions/errythema MSK: no joint swelling/erythema Results & Data Results & Data ([facility]) Vital Signs (Past 12 Hours) Vital Signs Temp Pulse Pulse Pulse Pulse Pulse Resp 11/16/20 11:28 36.9 C 87 18 11/16/20 11:11 90 87 88 11/16/20 11:00 11/16/20 09:12 11/16/20 08:00 85 11/16/20 07:43 37.7 C H 85 18 11/16/20 04:31 37.3 C 77 16 Resp Resp Resp BP Pulse Ox Pulse Ox Pulse Ox 11/16/20 11:28 129/65 93 11/16/20 11:11 18 16 16 89 L 11/16/20 11:00 93 11/16/20 09:12 90 11/16/20 08:00 91 11/16/20 07:43 152/68 H 97 11/16/20 04:31 150/79 H 95 Pulse Ox Pulse Ox 11/16/20 11:28 11/16/20 11:11 93 94 11/16/20 11:00 11/16/20 09:12 11/16/20 08:00 11/16/20 07:43 11/16/20 04:31
[2020-11-17] MEDS: LEVOTHYROXINE SODIUM 25 MCG TABLET PO SCH (04:57)
[2020-11-17 07:19] LABS: Hematocrit (blood only) 36.4 % (37-47); Hemoglobin 12.5 g/dL (12.0-16.0); Mean Corpuscular Hemoglobin 29.5 pg (25-34); Mean Corpuscular Hgb Conc 34.3 g/dL (32-36); Mean Corpuscular Volume 85.8 fL (80-100); Mean Platelet Volume 11.2 fL (7.4-10.4); Platelet Count 252 K/uL (130-400); RDW Coefficient of Variation 13.5 % (11.5-14.5); RDW Standard Deviation 42.8 fL (36.4-46.3); Red Blood Count 4.24 M/uL (4.2-5.4); White Blood Count 8.35 K/uL (4.8-10.8)
[2020-11-17] MEDS: ACETAMINOPHEN 325 MG TAB PO PRN (07:28)
[2020-11-17 07:47] LABS: Albumin Level 2.3 gm/dl (3.4-5.0); BUN Creatinine Ratio 14.4 (10-20); Calcium 7.7 mg/dl (8.5-10.1); Creatinine Clr Calc Pharmacy 53.1 ml/min; Est GFR (African American) 97.7; Est GFR (Non-African American) 84.3; Potassium 4.1 mmol/L (3.5-5.1)
[2020-11-17 07:50] LABS: Albumin Globulin Ratio 0.6 (0.9-2); Bilirubin,Total 0.5 mg/dl (0.2-1); Globulin 3.9 gm/dl (2.5-4.0); Total Protein 6.2 gm/dl (6.4-8.2)
[2020-11-17] MEDS: CALCIUM 600MG + VIT D 400 IU TAB PO SCH (08:17)
[2020-11-17] MEDS: dexAMETHasone 6 MG in SYRINGE 0 ML IV SCH (08:17)
[2020-11-17] MEDS: VENLAFAXINE HCL XR 75 MG CAPXR PO SCH (08:17)
[2020-11-17] MEDS: lisinopril 10 MG TAB PO SCH (08:17)
[2020-11-17] MEDS: CEROVITE ADV FORMULA TAB PO SCH (08:17)
[2020-11-17] MEDS: OMEGA-3 (PURIFIED FISH OIL) 1 GM CAP PO SCH (08:17)
[2020-11-17] MEDS: INSULIN ASPART 100 UNITS/ML 3 ML PEN SC SCH ×2 (08:26→12:20)
--- NOTE | 2020-11-17 10:56 | XRay Report ---
XR chest 1V portable HISTORY: COVID with hypoxia , r/o pneumonia COMPARISON: Chest 11/14/2020. FINDINGS: No pneumothorax. No pleural effusions. The heart is normal in size. No evidence for pulmona ry edema. There appear to be faint hazy airspace opacities within the left midlung zone. This likely represents a mild pneumonia. Bibasilar linear densities favor subsegmental atelectasis. This similar to the prior study. Emphysema. IMPRESSION: Faint hazy airspace opacities within the left midlung zone likely representing a viral pneumonia. ACT 112: Negative or not required by law. Electronically signed by: Stephen Young M.D. 11/17/2020 10:55 AM
[2020-11-17] MEDS: ATORVASTATIN 20 MG TAB PO SCH (12:19)
--- NOTE | 2020-11-17 14:32 | Hospitalist Progress Note ---
Date of Service delayed entry date of service noted below November 17, 2020 Assessment & Plan (1) Acute hypoxemic respiratory failure due to COVID-19: per Dr Lackey notes: Patient is 84-year-old female with past medical history of diabetes mellitus type 2, hypertension, hyperlipidemia and anxiety presented to the ED with worsening shortness of breath. She was found to be Covid positive. -- repeat CXR : IMPRESSION: Faint hazy airspace opacities within the left midlung zone likely representing a viral pneumonia. -- patient speaking in sentences with no effort on room air states she is back to her baseline and would like to be discharged -- received Decadron IV discharge on Prednisone taper and O2 at night -- patient given instructions as well as her niece over the phone re: COVID precautions, worsening signs/symptoms they are agreeable, understandable, comfortable with the plan of care (2) Hypomagnesemia: Repleted (3) Diabetes: - HgA1c at 6.3 (4) High cholesterol: - Cont atorvastatin 20 mg daily (5) HTN (hypertension): - Continue lisinopril 10 mg daily (6) Nausea: - Zofran prn (7) Anxiety: - Continue Effexor 225 mg daily (8) DVT prophylaxis: - teds Admission and Anticipated Discharge Date Admission Date: November 14, 2020 Subjective ff up for COVID pneumonia seen resting in bedside chair, comfortable on room air alert, oriented x 3 states she feels fine overall denies dyspnea, chest pain, palpitations, headache, dizziness, abdominal pain, n ausea/vomiting states she is back to her baseline no other symptoms Review of Systems Review of Systems: All systems reviewed & are unremarkable except as noted in Subjective Physical Exam Physical Exam: General- oriented x 3, not in distress, speaks in sentences with no effort or accessory muscle use Eyes- anicteric Neck- no JVD Lungs- clear breath sounds bilaterally, no rales/wheezes Heart- normal rate, regular rhythm; no murmurs Abdomen- normal bowel sounds, nondistended, soft, nontender Extremities- no pretibial edema, no calf tenderness Neuro- alert, oriented x 3; no gross focal neurologic deficits Skin- warm & dry Results & Data Results & Data ([facility]) Vital Signs (Past 12 Hours) Vital Signs Temp Pulse Pulse Pulse Resp BP Pulse Ox 11/17/20 11:38 36.7 C 79 18 108/61 94 11/17/20 10:32 18 11/17/20 08:00 85 11/17/20 07:17 37.7 C H 92 H 18 162/74 H 92 11/17/20 04:53 37.1 C 90 20 133/94 91 11/17/20 04:33 89 Pulse Ox Pulse Ox 11/17/20 11:38 11/17/20 10:32 11/17/20 08:00 93 11/17/20 07:17 11/17/20 04:53 11/17/20 04:33 93 all noted and reviewed
[2020-11-18] MEDS ORDERED: ALENDRONATE SODIUM 70 MG TAB PO SCH (06:00)
== END 2020-11-17 17:10 | disposition home or self-care (01) | DRG 177 ==
LOC: ED 13:40 → 2E 17:49 → SUATTDRO 17:49 → 2E 19:57

== ENCOUNTER 2020-11-18 06:40 | Inpatient (IN) ==
[2020-11-18] MEDS ORDERED: SODIUM CHLORIDE 0.9% 500 ML IV ONE (06:48)
--- NOTE | 2020-11-18 06:52 | Emergency Department Note ---
History of Present Illness General Chief complaint: Illness Stated complaint: COVID+/NOT FEELING WELL Time Seen by Provider: 11/18/20 06:41 Source: EMS Mode of arrival: EMS Limitations: no limitations History of Present Illness This patient is a 84-year-old type II diabetic who comes in after having worsening of symptoms related to her Covid. She was hospitalized and discharged yesterday with home oxygen to be used at night 2 L. She had a rough night had a fever and was short of breath. When the paramedics got there her O2 sat was 85% on room air so they put her on 15 L nasal cannula. She denies any chest pain she does complain about her mouth feeling dry but has had no vomiting or diarrhea. No abdominal pain. No focal numbness or weakness. She has not checked her blood sugar recently. Home Medications Medication Instructions Recorded Confirmed Type alendronate 70 mg PO WK 11/14/20 11/18/20 History atorvastatin 20 mg PO QDL 11/14/20 11/18/20 History calcium carbonate-vitamin D3 1 tab PO QAM 11/14/20 11/18/20 History [Calcium 600 + D(3)] levothyroxine 25 mcg PO QAM 11/14/20 11/18/20 History lisinopril 10 mg PO QAM 11/14/20 11/18/20 History loratadine [Claritin] 10 mg PO DAILY PRN 11/14/20 11/18/20 History metformin 1,000 mg PO QAM 11/14/20 11/18/20 History multivitamin with minerals 1 tab PO QAM 11/14/20 11/18/20 History omega 8-dwk-hxr-fish oil [Fish Oil] 1 cap PO QAM 11/14/20 11/18/20 History venlafaxine 225 mg PO QAM 11/14/20 11/18/20 History Oxygen Home #1 ea 11/17/20 11/18/20 Rx prednisone 10 mg PO UD #10 tab 11/17/20 11/18/20 Rx acetaminophen [Tylenol] 325 mg PO QID PRN 11/18/20 11/18/20 History pantoprazole 20 mg PO QAM 11/18/20 11/18/20 History Allergies Allergy/AdvReac Type Severity Reaction Status Date / Time peach Allergy Severe FACIAL Verified 11/18/20 08:10 SWELLING Sulfa (Sulfonamide Allergy Severe DIFFICULTY Verified 11/18/20 08:10 Antibiotics) BREATHING sulfamethoxazole Allergy Severe DIFFICULTY Verified 11/18/20 08:10 BREATHING Past Med/Surg History Medical History Breast cancer Diabetes High cholesterol Surgical History H/O mastectomy H/O: hysterectomy Social History Smoking Status: Never smoker Hx Alcohol Use: Yes Alcohol type: wine Hx Substance Use: No Preferred Language: Lithuanian Communication Ability: Effective Community Health Planning Director Required: No Beliefs That Will Affect Care: None Current Living Situation: Alone Current Living Situation Comment: Niece lives downstairs Other Information That Helps Us Care for You: No Feels Safe at Home: Yes Safety Concerns: Feels Safe At This Time Assistive Devices: Cane, Denture - Upper and Denture - Lower Review of Systems A total of 10 systems reviewed and were otherwise negative Physical Exam Vital Signs Vital Signs - 24 hr 11/18/20 06:46 11/18/20 06:51 11/18/20 06:55 Temperature 38.3 C H Temperature Source Oral Pulse Rate 90 93 H 95 H Pulse Rate from SpO2 Sensor 91 H 92 H Respiratory Rate 23 20 24 Respiratory Effort / Characteristics Non-Labored Spontaneous Respiratory Depth Normal Respiratory Pattern Regular Blood Pressure 128/105 H 128/105 H Blood Pressure Mean 112 112 Pulse Oximetry 93 94 89 L Oxygen Delivery Method Room Air Oxygen Flow Rate 3 3 Sepsis Recent Fever Within 48 Hours No Sepsis New/Unexplained Change in Mental Status N/A Sepsis Action Taken by Nursing Physician Notified Oxygen Flow Rate - Titration Pulse Oximetry Post Tiitration 11/18/20 07:00 11/18/20 07:01 11/18/20 07:02 Temperature Temperature Source Pulse Rate 87 Pulse Rate from SpO2 Sensor 88 Respiratory Rate 24 Respiratory Effort / Characteristics Respiratory Depth Respiratory Pattern Blood Pressure 149/68 H Blood Pressure Mean 95 Pulse Oximetry 96 89 L Oxygen Delivery Method Room Air Nasal Cannula Nasal Cannula Oxygen Flow Rate 3 0 3 Sepsis Recent Fever Within 48 Hours Sepsis New/Unexplained Change in Mental Status Sepsis Action Taken by Nursing Oxygen Flow Rate - Titration 3 Pulse Oximetry Post Tiitration 95 11/18/20 07:30 11/18/20 07:31 11/18/20 08:00 Temperature Temperature Source Pulse Rate 88 84 83 Pulse Rate from SpO2 Sensor 86 85 83 Respiratory Rate 19 23 23 Respiratory Effort / Characteristics Respiratory Depth Respiratory Pattern Blood Pressure 139/75 130/72 Blood Pressure Mean 96 91 Pulse Oximetry 90 95 95 Oxygen Delivery Method Oxygen Flow Rate 3 3 3 Sepsis Recent Fever Within 48 Hours Sepsis New/Unexplained Change in Mental Status Sepsis Action Taken by Nursing Oxygen Flow Rate - Titration Pulse Oximetry Post Tiitration 11/18/20 08:01 11/18/20 08:30 11/18/20 08:31 Temperature Temperature Source Pulse Rate 83 79 78 Pulse Rate from SpO2 Sensor 79 79 78 Respiratory Rate 22 22 23 Respiratory Effort / Characteristics Respiratory Depth Respiratory Pattern Blood Pressure 127/65 Blood Pressure Mean 85 Pulse Oximetry 96 95 95 Oxygen Delivery Method Oxygen Flow Rate 3 Sepsis Recent Fever Within 48 Hours Sepsis New/Unexplained Change in Mental Status Sepsis Action Taken by Nursing Oxygen Flow Rate - Titration Pulse Oximetry Post Tiitration 11/18/20 09:00 11/18/20 09:01 11/18/20 09:02 Temperature 37.1 C Temperature Source Oral Pulse Rate 81 77 Pulse Rate from SpO2 Sensor 80 77 Respiratory Rate 24 22 Respiratory Effort / Characteristics Respiratory Depth Respiratory Pattern Blood Pressure 130/68 Blood Pressure Mean 88 Pulse Oximetry 97 96 Oxygen Delivery Method Oxygen Flow Rate Sepsis Recent Fever Within 48 Hours Sepsis New/Unexplained Change in Mental Status Sepsis Action Taken by Nursing Oxygen Flow Rate - Titration Pulse Oximetry Post Tiitration 11/18/20 09:30 11/18/20 09:31 11/18/20 10:00 Temperature Temperature Source Pulse Rate 85 84 76 Pulse Rate from SpO2 Sensor 84 83 76 Respiratory Rate 22 20 20 Respiratory Effort / Characteristics Respiratory Depth Respiratory Pattern Blood Pressure 121/66 123/81 Blood Pressure Mean 84 95 Pulse Oximetry 94 96 97 Oxygen Delivery Method Oxygen Flow Rate Sepsis Recent Fever Within 48 Hours Sepsis New/Unexplained Change in Mental Status Sepsis Action Taken by Nursing Oxygen Flow Rate - Titration Pulse Oximetry Post Tiitration 11/18/20 10:01 Temperature Temperature Source Pulse Rate 77 Pulse Rate from SpO2 Sensor 78 Respiratory Rate 21 Respiratory Effort / Characteristics Respiratory Depth Respiratory Pattern Blood Pressure Blood Pressure Mean Pulse Oximetry 97 Oxygen Delivery Method Oxygen Flow Rate Sepsis Recent Fever Within 48 Hours Sepsis New/Unexplained Change in Mental Status Sepsis Action Taken by Nursing Oxygen Flow Rate - Titration Pulse Oximetry Post Tiitration General: Well developed well nourished older female who appears in no acute mild respiratory distress, on room air. Normal speech HEENT: Normal cephalic atraumatic. Pupils are equal round and reactive to light. Extraocular movements are intact. Oropharynx is pink with moist mucous membranes. No swelling of the mouth lips or tongue. Neck: Supple with a midline trachea. No meningeal signs or stiffness, no JVD or bruits. No Stridor. Chest: Clear to auscultation bilaterally. No wheezes or rhonchi. No increased work of breathing. Heart: Regular rate and rhythm without murmurs or gallops. Abdomen: Soft nontender, nondistended without rebound guarding or rigidity. Extremities: No cyanosis clubbing or edema. No calf tenderness or assymetry Spine/Back. Non tender to palpation. No CVA tenderness Skin: Good turgor without rashes. Neurologic exam: Cranial nerves two through 12 are intact. Motor and sensation are intact and symmetrical throughout. Course Administered Medications Atorvastatin Calcium (Atorvastatin 20 Mg Tab) 20 mg PO QDL YOANA Stop: 12/18/20 12:00 Last Admin: 11/18/20 13:34 Dose: 20 mg Documented by: [id number] Dexamethasone 6 mg/ Syringe 1.5 mls @ 1 mls/min IV DAILY@1200 YOANA Stop: 12/18/20 12:29 Last Admin: 11/18/20 13:33 Dose: 1 mls/min Documented by: [id number] Insulin Aspart (Insulin Aspart 100 Units/Ml 3 Ml Pen) 0 units SC ACHS YOANA Stop: 12/18/20 12:00 Last Admin: 11/18/20 13:40 Dose: 1 units Documented by: [id number] Cosigned by: [id number] Discontinued Medications Acetaminophen (Acetaminophen 500 Mg Tab) 500 mg PO NOW STA Stop: 11/18/20 07:24 Last Admin: 11/18/20 07:38 Dose: 500 mg Documented by: [id number] Sodium Chloride (Nss) 500 mls @ 999 mls/hr IV .Q31M ONE Stop: 11/18/20 07:18 Last Infusion: 11/18/20 07:39 Dose: 0 mls/hr Documented by: [id number] Admin: 11/18/20 06:59 Dose: 999 mls/hr Documented by: [id number] Magnesium Sulfate/Dextrose (Magnesium Sulfate / D5w) 1 gm in 100 mls @ 100 mls/hr IV NOW STA Stop: 11/18/20 08:25 Last Infusion: 11/18/20 08:37 Dose: 0 mls/hr Documented by: [id number] Admin: 11/18/20 07:37 Dose: 100 mls/hr Documented by: [id number] Medical Decision Making Differential Diagnosis Covid, hypoxemia, dehydration, cardiac disease, electrolyte or metabolic abnormalities, sepsis Medical Records Attestation: I reviewed the patient's medical records. Home Medications Current Medication List: was personally reviewed by me Laboratory Data Attestation: I reviewed the patient's lab results. Result diagrams: 11/18/20 06:51 11/18/20 06:51 Lab Results 11/18/20 11/18/20 11/18/20 Range/Units 06:46 06:51 06:51 WBC 11.78 H (4.8-10.8) K/uL RBC 4.36 (4.2-5.4) M/uL Hgb 12.7 (12.0-16.0) g/dL Hct 37.2 (37-47) % MCV 85.3 (80-100) fL MCH 29.1 (25-34) pg MCHC 34.1 (32-36) g/dL RDW Std Deviation 42.0 (36.4-46.3) fL RDW Coeff of Irasema 13.4 (11.5-14.5) % Plt Count 262 (130-400) K/uL MPV 10.1 (7.4-10.4) fL Immature Gran % (Auto) 0.3 % Neut % (Auto) 85.7 % Lymph % (Auto) 4.3 % [place] % (Auto) 9.6 % Eos % (Auto) 0.0 % Baso % (Auto) 0.1 % Neut # (Auto) 10.09 H (1.4-6.5) K/uL Lymph # (Auto) 0.51 L (1.2-3.4) K/uL [place] # (Auto) 1.13 H (0.11-0.59) K/uL Eos # (Auto) 0.00 (0-0.5) K/uL Baso # (Auto) 0.01 (0-0.2) K/uL Immature Gran # (Auto) 0.04 H (0.00-0.02) K/uL Sodium 131 L (136-145) mmol/L Potassium 4.3 (3.5-5.1) mmol/L Chloride 98 (98-107) mmol/L Carbon Dioxide 28 (21-32) mmol/L Anion Gap 5.0 (3-11) BUN 10 (7-18) mg/dl Creatinine 0.72 (0.6-1.2) mg/dl Est Cr Clr Drug Dosing 40.4 ml/min Est GFR ( Amer) 89.8 Est GFR (Non-Af Amer) 77.4 BUN/Creatinine Ratio 13.7 (10-20) Glucose 101 H (70-99) mg/dl POC Glucose 109 H (70-99) mg/dl Calcium 8.1 L (8.5-10.1) mg/dl Magnesium 1.6 L (1.8-2.4) mg/dl Total Bilirubin 0.6 (0.2-1) mg/dl AST 25 (15-37) U/L ALT 29 (12-78) U/L Alkaline Phosphatase 63 (45-117) U/L Total Protein 6.9 (6.4-8.2) gm/dl Albumin 2.4 L (3.4-5.0) gm/dl Globulin 4.5 H (2.5-4.0) gm/dl Albumin/Globulin Ratio 0.5 L (0.9-2) Lipase 116 (73-393) U/L Imaging Data Attestation: I personally reviewed and interpreted this imaging study as follows: My Impression: Chest x-raythere are some mild increased interstitial markings in the bases consistent with Covid Radiologist's Impression: Chest X-Ray 11/18/20 06:48 XR chest 1V portable CLINICAL HISTORY: Chest Pain COMPARISON STUDY: Chest radiograph November 17, 2020. FINDINGS: Lung volumes are normal. There is no pneumothorax or pleural effusion. Mild bilateral airspace opacities are noted. These have slightly progressed. There is no evidence for pulmonary edema. IMPRESSION: Slight increase in mild bilateral airspace opacities which favor an infectious process such as viral pneumonia. ACT 112: Negative or not required by law. Electronically signed by: Sourav Mckoy M.D. 11/18/2020 8:02 AM ECG Data Attestation: I personally reviewed and interpreted this ECG as follows: Indication: + SOB/dyspnea Rate (beats per minute): 91 ECG Intervals/blocks: + Normal QRS, + Normal QT and + Normal LA ECG [place]: + Normal ECG ST segments: + Normal ST segments ECG Findings: no PACs and no PVCs Comparison ECG Date: from (11/14/20) Change: no significant change MDM Narrative This patient returns after be discharged yesterday with Covid. She has gotten worse since leaving she is hypoxemic on route. She was placed on oxygen 15 L and she seems to have gotten a little bit better and we are trying to wean this down. She does appear dryand was given IV fluids with 500 cc normal saline bolus. IV access established and she was placed on a nuclear monitoring technician will monitor and multiple blood testing was obtained. She was reassessed frequently. Her blood sugar was within normal limits in the low 100s. She does have a fever and most likely this is from her Covid. She was given acetaminophen for this. Her chest x-ray does not show focal infiltrate but more of a mild haziness in the bases consistent with Covid. EKG does not suggest acute coronary syndrome or arrhythmia. Her magnesium was slightly low at 1.6 and she was given 1 g IV for repletion. I do think she needs to come back in the hospital and have consulted the [facility] hospitalist for these measures. I did talk to her niece on the phone as well and updated her of Ms. Watson's cond ition. Continuous cardiac monitoring: An order was placed in EMR for continuous cardiac monitoring due to her shortness of breath. Upon my interpretation, she was noted to be in normal sinus rhythm with a pulse of 90. Impression & Plan COVID-19, Hypoxemia, Hypomagnesemia, SOB (shortness of breath) Discharge Plan Visit Data Chief Complaint: Illness Stated Complaint: COVID+/NOT FEELING WELL ED Provider: Thom Pacheco Discharge Problem: COVID-19, Hypoxemia, Hypomagnesemia, SOB (shortness of breath) Patient Disposition: Admitted As Inpatient Discharge Instructions Interventions: ED Discharge Assessment Last Done: 11/18/20 11:44
[2020-11-18 07:05] LABS: Basophils # (auto) 0.01 K/uL (0-0.2); Basophils % (auto) 0.1 %; Hematocrit (blood only) 37.2 % (37-47); Hemoglobin 12.7 g/dL (12.0-16.0); Immature Granulocytes # (auto) 0.04 K/uL (0.00-0.02); Immature Granulocytes % (auto) 0.3 %; Lymphocytes # (auto) 0.51 K/uL (1.2-3.4); Lymphocytes % (auto) 4.3 %; Mean Corpuscular Hemoglobin 29.1 pg (25-34); Mean Corpuscular Hgb Conc 34.1 g/dL (32-36); Mean Corpuscular Volume 85.3 fL (80-100); Mean Platelet Volume 10.1 fL (7.4-10.4); Monocytes # (auto) 1.13 K/uL (0.11-0.59); Monocytes % (auto) 9.6 %; Neutrophils # (auto) 10.09 K/uL (1.4-6.5); Neutrophils % (auto) 85.7 %; Platelet Count 262 K/uL (130-400); RDW Coefficient of Variation 13.4 % (11.5-14.5); Red Blood Count 4.36 M/uL (4.2-5.4); White Blood Count 11.78 K/uL (4.8-10.8)
[2020-11-18 07:23] LABS: Albumin Level 2.4 gm/dl (3.4-5.0); BUN Creatinine Ratio 13.7 (10-20); Calcium 8.1 mg/dl (8.5-10.1); Creatinine Clr Calc Pharmacy 40.4 ml/min; Est GFR (African American) 89.8; Est GFR (Non-African American) 77.4; Magnesium 1.6 mg/dl (1.8-2.4); Potassium 4.3 mmol/L (3.5-5.1)
[2020-11-18] MEDS ORDERED: ACETAMINOPHEN 500 MG TAB PO STA (07:23)
[2020-11-18 07:25] LABS: Albumin Globulin Ratio 0.5 (0.9-2); Bilirubin,Total 0.6 mg/dl (0.2-1); Globulin 4.5 gm/dl (2.5-4.0); Total Protein 6.9 gm/dl (6.4-8.2)
[2020-11-18] MEDS ORDERED: MAGNESIUM SULFATE / D5W 1 GM/100 ML BAG IV STA (07:26)
--- NOTE | 2020-11-18 08:03 | XRay Report ---
XR chest 1V portable CLINICAL HISTORY: Chest Pain COMPARISON STUDY: Chest radiograph November 17, 2020. FINDINGS: Lung volumes are normal. There is no pneumothorax or pleural effusion. Mild bilateral airsp del opacities are noted. These have slightly progressed. There is no evidence for pulmonary edema. IMPRESSION: Slight increase in mild bilateral airspace opacities which favor an infectious process s uch as viral pneumonia. ACT 112: Negative or not required by law. Electronically signed by: Sourav Mckoy M.D. 11/18/2020 8:02 AM
--- NOTE | 2020-11-18 10:02 | History & Physical Report ---
Date of Service November 18, 2020 Assessment & Plan (1) COVID-19: (2) SOB (shortness of breath): Acute hypoxemic respiratory failure due to COVID-19: Patient is 84-year-old female with past medical history of diabetes mellitus type 2, hypertension, hyperlipidemia and anxiety presented to the ED with worsening shortness of breath, fever and weakness. Pt was discharged home last night on oxygen supplement at HS CXR showed slight increase in mild bilateral airspace opacities which favor an infectious process such as viral pneumonia. Will resume decadron 6mg IV Continue oxygen supplement out of the window for remdesivir and convalescent plasma Will check ESR, ferritin, CRP in am Will hold on abx for now Will check procalcitonin and if elevates, will start on abx to cover superimposed bacterial infection continue monitor closely Hypomagnesemia: Mg 1.6 in the Er Mg replaced Diabetes: Most recent HgA1c at 6.3 Will hold metformin Continue insulin sliding scale with novolog Continue monitor BS Dyslipidemia Continue atorvastatin 20 mg daily HTN (hypertension): BP stable Continue lisinopril 10 mg daily Anxiety: Continue Effexor 225 mg daily DVT prophylaxis Will add Lovenox CODE Status DNR History of Present Illness Chief Complaint: SOB/Fever Primary Care Provider: Emory Mills MD 84 yo F with PMHx of DM II, HLD, anxiety, nausea and breast cancer who was brought back to the ER after discharging last night for worsening SOB and fever. Pt was recently admitted and discharge last night for COVID 19 with oxygen supplement to use at night. Pt said that last night she developed worsening SOB, sweating. She said that she felt very warm last night and had a fever of 101 as per daughter. Spoke to niece over the phone, she said that pt was very flushed last night and febrile. She said that pt was very weak and feels nauseated. She said that she put the oxygen on her last night with no relief in her breathing. Denies any chest pain, palpitation, dizziness and SOB. Allergies Allergy/AdvReac Type Severity Reaction Status Date / Time peach Allergy Severe FACIAL Verified 11/18/20 08:10 SWELLING Sulfa (Sulfonamide Allergy Severe DIFFICULTY Verified 11/18/20 08:10 Antibiotics) BREATHING sulfamethoxazole Allergy Severe DIFFICULTY Verified 11/18/20 08:10 BREATHING Home Medications Medication Instructions Recorded Confirmed Type alendronate 70 mg PO WK 11/14/20 11/18/20 History atorvastatin 20 mg PO QDL 11/14/20 11/18/20 History calcium carbonate-vitamin D3 1 tab PO QAM 11/14/20 11/18/20 History [Calcium 600 + D(3)] levothyroxine 25 mcg PO QAM 11/14/20 11/18/20 History lisinopril 10 mg PO QAM 11/14/20 11/18/20 History loratadine [Claritin] 10 mg PO DAILY PRN 11/14/20 11/18/20 History metformin 1,000 mg PO QAM 11/14/20 11/18/20 History multivitamin with minerals 1 tab PO QAM 11/14/20 11/18/20 History omega 3-mos-rdp-fish oil [Fish Oil] 1 cap PO QAM 11/14/20 11/18/20 History venlafaxine 225 mg PO QAM 11/14/20 11/18/20 History Oxygen Home #1 ea 11/17/20 11/18/20 Rx prednisone 10 mg PO UD #10 tab 11/17/20 11/18/20 Rx acetaminophen [Tylenol] 325 mg PO QID PRN 11/18/20 11/18/20 History pantoprazole 20 mg PO QAM 11/18/20 11/18/20 History Past Med/Surg History Medical History Breast cancer Diabetes High cholesterol Surgical History H/O mastectomy H/O: hysterectomy Social History Smoking Status: Never smoker Hx Alcohol Use: Yes Alcohol type: wine Hx Substance Use: No Preferred Language: Setswana Communication Ability: Effective Flame Burner Required: No Beliefs That Will Affect Care: None Current Living Situation: Alone Current Living Situation Comment: Niece lives downstairs Other Information That Helps Us Care for You: No Feels Safe at Home: Yes Safety Concerns: Feels Safe At This Time Assistive Devices: Oxygen - Continuous Review of Systems Review of Systems: All systems reviewed & are unremarkable except as noted in HPI & below Physical Exam Physical Exam: General- No acute distress Head- atraumatic Eyes- PERRL, EOMI, ENT- oropharynx clear Neck- supple, no JVD Lungs- diminished BS Heart- regular rhythm; no murmur Abdomen- normal bowel sounds, soft, nontender Extremities- no calf tenderness Neuro- alert, oriented x 3; PERRL, EOMI; no facial palsy; no dysarthria Skin- warm & dry Results & Data Results & Data ([facility]) Vital Signs (Past 12 Hours) Vital Signs Temp Pulse Resp BP Pulse Ox 11/18/20 09:31 84 20 96 11/18/20 09:30 85 22 121/66 94 11/18/20 09:02 37.1 C 11/18/20 09:01 77 22 96 11/18/20 09:00 81 24 130/68 97 11/18/20 08:31 78 23 95 11/18/20 08:30 79 22 127/65 95 11/18/20 08:01 83 22 96 11/18/20 08:00 83 23 130/72 95 11/18/20 07:31 84 23 95 11/18/20 07:30 88 19 139/75 90 11/18/20 07:01 89 L 11/18/20 07:00 87 24 149/68 H 96 11/18/20 06:55 38.3 C H 95 H 24 128/105 H 89 L 11/18/20 06:51 93 H 20 94 11/18/20 06:46 90 23 128/105 H 93 Diagnostic Findings XR chest 1V portable CLINICAL HISTORY: Chest Pain COMPARISON STUDY: Chest radiograph November 17, 2020. FINDINGS: Lung volumes are normal. There is no pneumothorax or pleural effusion. Mild bilateral airspace opacities are noted. These have slightly progressed. There is no evidence for pulmonary edema. IMPRESSION: Slight increase in mild bilateral airspace opacities which favor an infectious process such as viral pneumonia. ACT 112: Negative or not required by law. Electronically signed by: Sourav Mckoy M.D. 11/18/2020 8:02 AM Dictated: 11/18/20800Transcribed: 11/18/20800
--- NOTE | 2020-11-18 10:41 | Electrocardiogram Report ---
Test Reason : Blood Pressure : / mmHG Vent. Rate : 091 BPM Atrial Rate : 091 BPM P-R Int : 130 ms QRS Dur : 084 ms QT Int : 340 ms P-R-T Axes : 054 052 071 degrees QTc Int : 418 ms Poor data quality, interpretation may be adversely affected Normal sinus rhythm Normal ECG When compared with ECG of 14-NOV-2020 14:19, No significant change was found Confirmed by Jose Canales ([id number]) on 11/18/2020 10:41:11 AM Referred By: Confirmed By:Jose Canales
[2020-11-18] MEDS ORDERED: LORATADINE 10 MG TAB PO PRN (12:01)
[2020-11-18] MEDS ORDERED: GLUCOSE 40% GEL 15 GM TUBE PO PRN (12:01)
[2020-11-18] MEDS ORDERED: GLUCAGON FOR INJ 1 MG VIAL SQ PRN (12:01)
[2020-11-18] MEDS ORDERED: DEXTROSE 50% 50 ML SYRINGE IV PRN (12:01)
[2020-11-18] MEDS ORDERED: CARBOHYDRATES FOR HYPOGLYCEMIA PO PRN (12:01)
[2020-11-18] MEDS ORDERED: ACETAMINOPHEN 325 MG TAB PO PRN (12:01)
[2020-11-18] MEDS ORDERED: GLUCOSE 10 TABS/TUBE PO PRN (12:01)
[2020-11-18] MEDS: dexAMETHasone 6 MG in SYRINGE 0 ML IV SCH (13:33)
[2020-11-18] MEDS: ATORVASTATIN 20 MG TAB PO SCH (13:34)
[2020-11-18] MEDS: INSULIN ASPART 100 UNITS/ML 3 ML PEN SC SCH ×3 (13:40→21:15)
[2020-11-19] MEDS: LEVOTHYROXINE SODIUM 25 MCG TABLET PO SCH (06:25)
[2020-11-19 07:29] LABS: Hemoglobin 11.8 g/dL (12.0-16.0); Mean Corpuscular Hemoglobin 29.1 pg (25-34); Mean Corpuscular Hgb Conc 33.7 g/dL (32-36); Mean Corpuscular Volume 86.4 fL (80-100); Mean Platelet Volume 10.1 fL (7.4-10.4); Platelet Count 319 K/uL (130-400); RDW Coefficient of Variation 13.7 % (11.5-14.5); RDW Standard Deviation 43.9 fL (36.4-46.3); Red Blood Count 4.05 M/uL (4.2-5.4); White Blood Count 9.73 K/uL (4.8-10.8)
[2020-11-19 07:50] LABS: BUN Creatinine Ratio 21.3 (10-20); Creatinine Clr Calc Pharmacy 54.8 ml/min; Est GFR (African American) 101.8; Est GFR (Non-African American) 87.8; Potassium 4.3 mmol/L (3.5-5.1)
[2020-11-19] MEDS: OMEGA-3 (PURIFIED FISH OIL) 1 GM CAP PO SCH (07:53)
[2020-11-19] MEDS: VENLAFAXINE HCL XR 75 MG CAPXR PO SCH (07:53)
[2020-11-19] MEDS: CEROVITE ADV FORMULA TAB PO SCH (07:53)
[2020-11-19] MEDS: CALCIUM 600MG + VIT D 400 IU TAB PO SCH (07:53)
[2020-11-19] MEDS: PANTOprazole 40 MG TAB PO SCH (07:53)
[2020-11-19] MEDS: lisinopril 10 MG TAB PO SCH (07:53)
[2020-11-19 07:55] LABS: C Reactive Protein 13.8 mg/dl (0-0.29)
[2020-11-19] MEDS: INSULIN ASPART 100 UNITS/ML 3 ML PEN SC SCH ×4 (08:09→20:23)
[2020-11-19] MEDS: dexAMETHasone 6 MG in SYRINGE 0 ML IV SCH (12:32)
[2020-11-19] MEDS: ENOXAPARIN INJ 40 MG/0.4 ML SYR SQ SCH (12:32)
[2020-11-19] MEDS: ATORVASTATIN 20 MG TAB PO SCH (12:32)
--- NOTE | 2020-11-19 18:32 | Hospitalist Progress Note ---
Date of Service November 19, 2020 Assessment & Plan (1) COVID-19: (2) SOB (shortness of breath): Acute hypoxemic respiratory failure due to COVID-19: Patient is 84-year-old female with past medical history of diabetes mellitus type 2, hypertension, hyperlipidemia and anxiety presented to the ED with worsening shortness of breath, fever and weakness. Pt was discharged home last night on oxygen supplement at HS CXR showed slight increase in mild bilateral airspace opacities which favor an infectious process such as viral pneumonia. Continue decadron 6mg IV Continue oxygen supplement out of the window for remdesivir and convalescent plasma Will check procalcitonin and if elevates, will start on abx to cover superimposed bacterial infection Ferritin 406, C reactive 13.8, ESR 23 and procalcitonin negative Pt has been afebrile for over 24hrs No abx since procalcitonin negative and pt clinically improves continue monitor closely Hypomagnesemia: Mg 1.6 in the Er Mg replaced Mg stable Diabetes: Most recent HgA1c at 6.3 Will hold metformin Continue insulin sliding scale with novolog Continue monitor BS Dyslipidemia Continue atorvastatin 20 mg daily HTN (hypertension): BP stable Continue lisinopril 10 mg daily Anxiety: Continue Effexor 225 mg daily DVT prophylaxis Continue Lovenox subq CODE Status DNR Admission and Anticipated Discharge Date Admission Date: November 18, 2020 Subjective Pt was seen and examined for follow up of SOB Lying in bed with no distress Pt said that she feels a lot better today Denies any chest pain, palpitation, dizziness and SOB Review of Systems Review of Systems: All systems reviewed & are unremarkable except as noted in Subjective Physical Exam Physical Exam: General- No acute distress Head- atraumatic Eyes- PERRL, EOMI, ENT- oropharynx clear Neck- supple, no JVD Lungs- diminished BS Heart- regular rhythm; no murmur Abdomen- normal bowel sounds, soft, nontender Extremities- no calf tenderness Neuro- alert, oriented x 3; PERRL, EOMI; no facial palsy; no dysarthria Skin- warm & dry Results & Data Results & Data ([facility]) Vital Signs (Past 12 Hours) Vital Signs Temp Pulse Pulse Resp BP Pulse Ox 11/19/20 16:11 36.9 C 82 16 139/72 92 11/19/20 15:31 89 11/19/20 12:30 37.0 C 77 16 128/69 93 11/19/20 07:50 36.5 C 70 16 117/71 93 11/19/20 07:23 75
[2020-11-20] MEDS: LEVOTHYROXINE SODIUM 25 MCG TABLET PO SCH (05:33)
[2020-11-20] MEDS: OMEGA-3 (PURIFIED FISH OIL) 1 GM CAP PO SCH (08:07)
[2020-11-20] MEDS: lisinopril 10 MG TAB PO SCH (08:07)
[2020-11-20] MEDS: PANTOprazole 40 MG TAB PO SCH (08:07)
[2020-11-20] MEDS: CALCIUM 600MG + VIT D 400 IU TAB PO SCH (08:07)
[2020-11-20] MEDS: ENOXAPARIN INJ 40 MG/0.4 ML SYR SQ SCH (08:08)
[2020-11-20] MEDS: CEROVITE ADV FORMULA TAB PO SCH (08:08)
[2020-11-20] MEDS: VENLAFAXINE HCL XR 75 MG CAPXR PO SCH (08:08)
[2020-11-20 08:38] LABS: C Reactive Protein 7.6 mg/dl (0-0.29); Calcium 8.4 mg/dl (8.5-10.1); Creatinine Clr Calc Pharmacy 59.3 ml/min; Est GFR (African American) 104.4; Est GFR (Non-African American) 90.1; Potassium 4.6 mmol/L (3.5-5.1)
[2020-11-20] MEDS: INSULIN ASPART 100 UNITS/ML 3 ML PEN SC SCH ×4 (08:49→20:38)
[2020-11-20] MEDS: ATORVASTATIN 20 MG TAB PO SCH (12:33)
[2020-11-20] MEDS: dexAMETHasone 6 MG in SYRINGE 0 ML IV SCH (12:47)
--- NOTE | 2020-11-20 18:55 | Hospitalist Progress Note ---
Date of Service November 20, 2020 Assessment & Plan (1) COVID-19: (2) SOB (shortness of breath): Acute hypoxemic respiratory failure due to COVID-19: Patient is 84-year-old female with past medical history of diabetes mellitus type 2, hypertension, hyperlipidemia and anxiety presented to the ED with worsening shortness of breath, fever and weakness. Pt was discharged home last night on oxygen supplement at HS CXR showed slight increase in mild bilateral airspace opacities which favor an infectious process such as viral pneumonia. Continue decadron 6mg IV Continue oxygen supplement out of the window for remdesivir and convalescent plasma Will check procalcitonin and if elevates, will start on abx to cover superimposed bacterial infection Ferritin 406 --> 446, C reactive 13.8--> 7.6 and ESR 23--> 37 Procalcitonin negative Pt has been afebrile for over 24hrs No abx since procalcitonin negative and pt clinically improves Will try to titrate oxygen Will give lasix 20mg x1 today continue monitor closely Hypomagnesemia: Mg 1.6 on admission Mg replaced Mg stable Diabetes: Most recent HgA1c at 6.3 Will hold metformin Continue insulin sliding scale with novolog Continue monitor BS Dyslipidemia Continue atorvastatin 20 mg daily HTN (hypertension): BP stable Continue lisinopril 10 mg daily Anxiety: Continue Effexor 225 mg daily DVT prophylaxis Continue Lovenox subq CODE Status DNR Admission and Anticipated Discharge Date Admission Date: November 18, 2020 Subjective Pt was seen and examined for follow up of SOB Lying in bed with no distress Pt said that she feels a lot better today She said that she is breathing better Denies any chest pain, palpitation, dizziness and SOB Review of Systems Review of Systems: All systems reviewed & are unremarkable except as noted in Subjective Physical Exam Physical Exam: General- No acute distress Head- atraumatic Eyes- PERRL, EOMI, ENT- oropharynx clear Neck- supple, no JVD Lungs- diminished BS Heart- regular rhythm; no murmur Abdomen- normal bowel sounds, soft, nontender Extremities- no calf tenderness Neuro- alert, oriented x 3; PERRL, EOMI; no facial palsy; no dysarthria Skin- warm & dry Results & Data Results & Data ([facility]) Vital Signs (Past 12 Hours) Vital Signs Temp Pulse Pulse Resp BP Pulse Ox Pulse Ox 04/12/21 16:00 86 11/20/20 15:54 97 11/20/20 15:47 36.9 C 82 16 120/65 95 11/20/20 13:20 96 11/20/20 11:19 36.6 C 77 16 130/60 94 11/20/20 08:03 37.1 C 79 20 133/65 93 11/20/20 07:03 65
[2020-11-20] MEDS ORDERED: FUROSEMIDE 20 MG in SYRINGE 0 ML IV ONE (19:00)
[2020-11-21] MEDS: LEVOTHYROXINE SODIUM 25 MCG TABLET PO SCH (05:37)
[2020-11-21 07:58] LABS: BUN Creatinine Ratio 24.5 (10-20); C Reactive Protein 3.22 mg/dl (0-0.29); Calcium 8.4 mg/dl (8.5-10.1); Creatinine Clr Calc Pharmacy 48.5 ml/min; Est GFR (African American) 97.7; Est GFR (Non-African American) 84.3; Potassium 4.8 mmol/L (3.5-5.1)
[2020-11-21 08:02] LABS: Ferritin 439.4 ng/ml (8-388)
[2020-11-21] MEDS: OMEGA-3 (PURIFIED FISH OIL) 1 GM CAP PO SCH (08:40)
[2020-11-21] MEDS: CALCIUM 600MG + VIT D 400 IU TAB PO SCH (08:41)
[2020-11-21] MEDS: CEROVITE ADV FORMULA TAB PO SCH (08:41)
[2020-11-21] MEDS: lisinopril 10 MG TAB PO SCH (08:41)
[2020-11-21] MEDS: PANTOprazole 40 MG TAB PO SCH (08:41)
[2020-11-21] MEDS: ENOXAPARIN INJ 40 MG/0.4 ML SYR SQ SCH (08:42)
[2020-11-21] MEDS: VENLAFAXINE HCL XR 75 MG CAPXR PO SCH (08:42)
[2020-11-21] MEDS: INSULIN ASPART 100 UNITS/ML 3 ML PEN SC SCH ×4 (09:13→21:00)
[2020-11-21] MEDS: ATORVASTATIN 20 MG TAB PO SCH (12:19)
[2020-11-21] MEDS: dexAMETHasone 6 MG in SYRINGE 0 ML IV SCH (12:19)
--- NOTE | 2020-11-21 18:30 | Hospitalist Progress Note ---
Date of Service November 21, 2020 Assessment & Plan (1) COVID-19: (2) SOB (shortness of breath): Acute hypoxemic respiratory failure due to COVID-19: Patient is 84-year-old female with past medical history of diabetes mellitus type 2, hypertension, hyperlipidemia and anxiety presented to the ED with worsening shortness of breath, fever and weakness. Pt was discharged home last night on oxygen supplement at HS CXR showed slight increase in mild bilateral airspace opacities which favor an infectious process such as viral pneumonia. Continue decadron 6mg IV Continue oxygen supplement out of the window for remdesivir and convalescent plasma Will check procalcitonin and if elevates, will start on abx to cover superimposed bacterial infection Ferritin 406 --> 446--> ferritin 439, C-reactive 13.8--> 7.6-->3.2 and ESR 23--> 37 -->35 Procalcitonin negative Pt has been afebrile for over 24hrs No abx since procalcitonin negative and pt clinically improves Will continue titrate oxygen off off Consider 2 step before discharge Overnight pulse oximetry done in the last admission and pt requires oxygen at HS continue monitor closely Hypomagnesemia: Mg 1.6 on admission Mg replaced Mg stable Diabetes: Most recent HgA1c at 6.3 Will hold metformin Continue insulin sliding scale with novolog Continue monitor BS Dyslipidemia Continue atorvastatin 20 mg daily HTN (hypertension): BP stable Continue lisinopril 10 mg daily Anxiety: Continue Effexor 225 mg daily DVT prophylaxis Continue Lovenox subq CODE Status DNR Disposition Will discharge once medically stable Admission and Anticipated Discharge Date Admission Date: November 18, 2020 Subjective Pt was seen and examined for follow up of SOB Lying in bed with no distress Pt said that she feels a lot better today She said that she is breathing better She is on 2L oxygen via [place] She is afraid to go home because she does not want to come back She would like to wean off the oxygen before discharge case discussed with oumou and provided with updates Denies any chest pain, palpitation, dizziness and SOB Review of Systems Review of Systems: All systems reviewed & are unremarkable except as noted in Subjective Physical Exam Physical Exam: General- No acute distress Head- atraumatic Eyes- PERRL, EOMI, ENT- oropharynx clear Neck- supple, no JVD Lungs- diminished BS Heart- regular rhythm; no murmur Abdomen- normal bowel sounds, soft, nontender Extremities- no calf tenderness Neuro- alert, oriented x 3; PERRL, EOMI; no facial palsy; no dysarthria Skin- warm & dry Results & Data Results & Data ([facility]) Vital Signs (Past 12 Hours) Vital Signs Temp Pulse Pulse Resp BP Pulse Ox 11/21/20 15:26 36.6 C 80 16 115/65 94 11/21/20 15:24 86 11/21/20 11:26 36.6 C 77 16 145/76 H 97 11/21/20 07:49 64 11/21/20 07:40 36.6 C 70 16 126/70 92
[2020-11-22] MEDS: LEVOTHYROXINE SODIUM 25 MCG TABLET PO SCH (05:40)
[2020-11-22 07:21] LABS: Hematocrit (blood only) 36.6 % (37-47); Hemoglobin 12.4 g/dL (12.0-16.0); Mean Corpuscular Hemoglobin 29.2 pg (25-34); Mean Corpuscular Hgb Conc 33.9 g/dL (32-36); Mean Corpuscular Volume 86.1 fL (80-100); Mean Platelet Volume 9.6 fL (7.4-10.4); Platelet Count 500 K/uL (130-400); RDW Coefficient of Variation 13.4 % (11.5-14.5); RDW Standard Deviation 42.9 fL (36.4-46.3); Red Blood Count 4.25 M/uL (4.2-5.4); White Blood Count 11.55 K/uL (4.8-10.8)
[2020-11-22 07:47] LABS: BUN Creatinine Ratio 26.1 (10-20); Calcium 8.7 mg/dl (8.5-10.1); Creatinine Clr Calc Pharmacy 51.9 ml/min; Est GFR (African American) 99.9; Est GFR (Non-African American) 86.2; Magnesium 1.8 mg/dl (1.8-2.4); Potassium 4.6 mmol/L (3.5-5.1)
[2020-11-22 07:48] LABS: Phosphorus 2.7 mg/dl (2.5-4.9)
[2020-11-22] MEDS: OMEGA-3 (PURIFIED FISH OIL) 1 GM CAP PO SCH (08:41)
[2020-11-22] MEDS: ENOXAPARIN INJ 40 MG/0.4 ML SYR SQ SCH (08:41)
[2020-11-22] MEDS: PANTOprazole 40 MG TAB PO SCH (08:41)
[2020-11-22] MEDS: VENLAFAXINE HCL XR 75 MG CAPXR PO SCH (08:42)
[2020-11-22] MEDS: lisinopril 10 MG TAB PO SCH (08:42)
[2020-11-22] MEDS: CALCIUM 600MG + VIT D 400 IU TAB PO SCH (08:42)
[2020-11-22] MEDS: CEROVITE ADV FORMULA TAB PO SCH (08:42)
[2020-11-22] MEDS: INSULIN ASPART 100 UNITS/ML 3 ML PEN SC SCH ×4 (09:12→21:20)
--- NOTE | 2020-11-22 09:13 | Hospitalist Progress Note ---
Date of Service November 22, 2020 Assessment & Plan (1) COVID-19: (2) SOB (shortness of breath): Acute hypoxemic respiratory failure due to COVID-19: Patient is 84 y/o female with past medical history of diabetes mellitus type 2, hypertension, hyperlipidemia and anxiety presented to the ED with worsening shortness of breath, fever and weakness. Pt was discharged home night before on oxygen supplement at HS CXR showed slight increase in mild bilateral airspace opacities which favor an infectious process such as viral pneumonia. Continue decadron 6mg IV Continue oxygen supplement out of the window for remdesivir and convalescent plasma Will check procalcitonin and if elevates, will start on abx to cover superimposed bacterial infection Ferritin 406 --> 446--> ferritin 439, C-reactive 13.8--> 7.6-->3.2 and ESR 23--> 37 -->35 Procalcitonin negative Now pt again developed fever (11/22), CXR repeated - c/w worsening multifocal pna Will start Abx ceftriaxone and doxy Will continue titrate oxygen off off Consider 2 step before discharge Overnight pulse oximetry done in the last admission and pt requires oxygen at HS continue monitor closely Hypomagnesemia: Mg 1.6 on admission Mg replaced Mg stable Diabetes: Most recent HgA1c at 6.3 Will hold metformin Continue insulin sliding scale with novolog Continue monitor BS Dyslipidemia Continue atorvastatin 20 mg daily HTN (hypertension): BP stable Continue lisinopril 10 mg daily Anxiety: Continue Effexor 225 mg daily DVT prophylaxis Continue Lovenox subq CODE Status DNR Disposition Will discharge once medically stable Admission and Anticipated Discharge Date Admission Date: November 18, 2020 Subjective Pt was seen and examined for follow up of SOB , COVID 19 pna Lying in bed in no distress Pt said that she feels better today She is on 2L oxygen via [place] She had fever agin today. CXR ordered She would like to wean off the oxygen before discharge Dr. Wheeler discussed with oumou and provided with updates yesterday Review of Systems Review of Systems: All systems reviewed & are unremarkable except as noted in HPI & below Constitutional: + fever Respiratory: + cough and + dyspnea (improved) Cardiovascular: no chest pain and no palpitations Gastrointestinal: no abdominal pain, no nausea and no vomiting Physical Exam Physical Exam: General- elderly female sitting up in bed, in no acute distress, on suppl. o2 via [place] Head- atraumatic Eyes- PERRL, EOMI, ENT- oropharynx clear Neck- supple, no JVD Lungs- very mild rhonchi noted, no wheezing Heart- regular rhythm; no murmur Abdomen- normal bowel sounds, soft, nontender Extremities- no calf tenderness Neuro- alert, oriented x 3; PERRL, EOMI; no facial palsy; no dysarthria Skin- warm & dry Results & Data Results & Data ([facility]) Vital Signs (Past 12 Hours) Vital Signs Temp Pulse Pulse Resp BP Pulse Ox 11/22/20 08:44 92 11/22/20 07:47 68 11/22/20 06:58 36.7 C 72 16 124/72 94 11/22/20 04:19 36.6 C 73 18 126/73 91 11/22/20 01:50 69 11/21/20 22:35 36.9 C 77 16 144/77 H 95 Laboratory Results 11/22/20 11/22/20 11/22/20 Range/Units 08:05 06:33 06:33 WBC 11.55 H (4.8-10.8) K/uL RBC 4.25 (4.2-5.4) M/uL Hgb 12.4 (12.0-16.0) g/dL Hct 36.6 L (37-47) % MCV 86.1 (80-100) fL MCH 29.2 (25-34) pg MCHC 33.9 (32-36) g/dL RDW Std Deviation 42.9 (36.4-46.3) fL RDW Coeff of Irasema 13.4 (11.5-14.5) % Plt Count 500 H (130-400) K/uL MPV 9.6 (7.4-10.4) fL Sodium 136 (136-145) mmol/L Potassium 4.6 (3.5-5.1) mmol/L Chloride 100 (98-107) mmol/L Carbon Dioxide 32 (21-32) mmol/L Anion Gap 4.0 (3-11) BUN 15 (7-18) mg/dl Creatinine 0.56 L (0.6-1.2) mg/dl Est Cr Clr Drug Dosing 51.9 ml/min Est GFR ( Amer) 99.9 Est GFR (Non-Af Amer) 86.2 BUN/Creatinine Ratio 26.1 H (10-20) Glucose 74 (70-99) mg/dl POC Glucose 72 (70-99) mg/dl Calcium 8.7 (8.5-10.1) mg/dl Phosphorus 2.7 (2.5-4.9) mg/dl Magnesium 1.8 (1.8-2.4) mg/dl Procalcitonin (0-0.5) ng/ml 11/22/20 11/21/20 11/21/20 Range/Units 06:33 20:21 17:22 WBC (4.8-10.8) K/uL RBC (4.2-5.4) M/uL Hgb (12.0-16.0) g/dL Hct (37-47) % MCV (80-100) fL MCH (25-34) pg MCHC (32-36) g/dL RDW Std Deviation (36.4-46.3) fL RDW Coeff of Irasema (11.5-14.5) % Plt Count (130-400) K/uL MPV (7.4-10.4) fL Sodium (136-145) mmol/L Potassium (3.5-5.1) mmol/L Chloride (98-107) mmol/L Carbon Dioxide (21-32) mmol/L Anion Gap (3-11) BUN (7-18) mg/dl Creatinine (0.6-1.2) mg/dl Est Cr Clr Drug Dosing ml/min Est GFR ( Amer) Est GFR (Non-Af Amer) BUN/Creatinine Ratio (10-20) Glucose (70-99) mg/dl POC Glucose 276 H 189 H (70-99) mg/dl Calcium (8.5-10.1) mg/dl Phosphorus (2.5-4.9) mg/dl Magnesium (1.8-2.4) mg/dl Procalcitonin < 0.05 (0-0.5) ng/ml 11/21/20 Range/Units 12:04 WBC (4.8-10.8) K/uL RBC (4.2-5.4) M/uL Hgb (12.0-16.0) g/dL Hct (37-47) % MCV (80-100) fL MCH (25-34) pg MCHC (32-36) g/dL RDW Std Deviation (36.4-46.3) fL RDW Coeff of Irasema (11.5-14.5) % Plt Count (130-400) K/uL MPV (7.4-10.4) fL Sodium (136-145) mmol/L Potassium (3.5-5.1) mmol/L Chloride (98-107) mmol/L Carbon Dioxide (21-32) mmol/L Anion Gap (3-11) BUN (7-18) mg/dl Creatinine (0.6-1.2) mg/dl Est Cr Clr Drug Dosing ml/min Est GFR ( Amer) Est GFR (Non-Af Amer) BUN/Creatinine Ratio (10-20) Glucose (70-99) mg/dl POC Glucose 106 H (70-99) mg/dl Calcium (8.5-10.1) mg/dl Phosphorus (2.5-4.9) mg/dl Magnesium (1.8-2.4) mg/dl Procalcitonin (0-0.5) ng/ml Medications Administered Current Inpatient Medications Acetaminophen (Acetaminophen 325 Mg Tab) 325 mg PO QID PRN PRN Reason: Pain Stop: 12/18/20 12:00 Atorvastatin Calcium (Atorvastatin 20 Mg Tab) 20 mg PO QDL YOANA Stop: 12/18/20 12:00 Last Admin: 11/21/20 12:19 Dose: 20 mg Documented by: Dextrose (Dextrose 50% 50 Ml Syringe) 25 - 50 ml IV UD PRN; Protocol PRN Reason: Hypoglycemia Protocol Stop: 12/18/20 12:00 Enoxaparin Sodium (Enoxaparin Inj 40 Mg/0.4 Ml Syr) 40 mg SQ QAM YOAAN Stop: 12/19/20 09:59 Last Admin: 11/22/20 08:41 Dose: 40 mg Documented by: Fish Oil ([place]-3 (Purified Fish Oil) 1 Gm Cap) 1 gm PO QAM YOANA Stop: 12/19/20 08:59 Last Admin: 11/22/20 08:41 Dose: 1 gm Documented by: Glucagon (Glucagon For Inj 1 Mg Vial) 1 mg SQ UD PRN; Protocol PRN Reason: Hypoglycemia Protocol Stop: 12/18/20 12:00 Glucose (Glucose 10 Tabs/Tube) 4 - 8 tabs PO UD PRN; Protocol PRN Reason: Hypoglycemia Protocol Stop: 12/18/20 12:00 Glucose (Glucose 40% Gel 15 Gm Tube) 15 - 30 gm PO UD PRN; Protocol PRN Reason: Hypoglycemia Protocol Stop: 12/18/20 12:00 Dexamethasone 6 mg/ Syringe 1.5 mls @ 1 mls/min IV DAILY@1200 [facility] Stop: 12/18/20 12:29 Last Admin: 11/21/20 12:19 Dose: 1 mls/min Documented by: Magnesium Sulfate/Dextrose (Magnesium Sulfate / D5w) 1 gm in 100 mls @ 50 mls/hr IV NOW ONE Stop: 11/22/20 11:14 Insulin Aspart (Insulin Aspart 100 Units/Ml 3 Ml Pen) 0 units SC ACHS [facility] Stop: 12/18/20 12:00 Last Admin: 11/21/20 21:00 Dose: 1 units Documented by: Levothyroxine Sodium (Levothyroxine Sodium 25 Mcg Tablet) 25 mcg PO DAILYBB [facility] Stop: 12/19/20 06:29 Last Admin: 11/22/20 05:40 Dose: 25 mcg Documented by: Lisinopril (Lisinopril 10 Mg Tab) [facility] [place] [facility] [place]: 12/19/20 08:59 Last Admin: 11/22/20 08:42 Dose: 10 mg Documented by: Loratadine (Loratadine 10 Mg Tab) 10 mg PO DAILY PRN PRN Reason: Congestion Stop: 12/18/20 12:00 Miscellaneous (Carbohydrates For Hypoglycemia ) 15 - 30 gm PO UD PRN PRN Reason: Hypoglycemia Protocol Stop: 12/18/20 12:00 Multivitamins/Minerals (Calcium 600mg + Vit D 400 Iu Tab) 1 tab PO QAM [facility] Stop: 12/19/20 08:59 Last Admin: 11/22/20 08:42 Dose: 1 tab Documented by: Multivitamins/Minerals (Cerovite Adv Formula Tab) 1 tab PO QAM [facility] Stop: 12/19/20 08:59 Last Admin: 11/22/20 08:42 Dose: 1 tab Documented by: Pantoprazole Sodium (Pantoprazole 40 Mg Tab) 40 mg [facility] [place]: 12/19/20 08:59 Last Admin: 11/22/20 08:41 Dose: 40 mg Documented by: Venlafaxine HCl (Venlafaxine Hcl Xr 75 Mg Capxr) 225 mg [facility] [place]: 12/19/20 08:59 Last Admin: 11/22/20 08:42 Dose: 225 mg Documented by:
[2020-11-22] MEDS ORDERED: MAGNESIUM SULFATE / D5W 1 GM/100 ML BAG IV ONE (09:15)
[2020-11-22] MEDS: ATORVASTATIN 20 MG TAB PO SCH (12:32)
[2020-11-22] MEDS: dexAMETHasone 6 MG in SYRINGE 0 ML IV SCH (12:32)
--- NOTE | 2020-11-22 14:00 | XRay Report ---
SINGLE VIEW CHEST CLINICAL HISTORY: Fever. FINDINGS: An AP, portable, upright chest radiograph is compared to study dated 11/18/2020. The cardiom ediastinal silhouette is unremarkable noting atherosclerotic calcification of the thoracic aorta. Mul tifocal airspace consolidation has increased as compared to 11/18/2020. No large pleural effusion or p neumothorax is seen. The skeletal structures are osteopenic. The bony thorax is grossly intact. IMPRESSION: There is increasing multifocal airspace consolidation as compared to 11/18/2020. This is t ypical for multifocal pneumonia, and radiographic follow-up to resolution is recommended. ACT 112: Negative or not required by law. Electronically signed by: Jamaal Grace M.D. 11/22/2020 1:59 PM
[2020-11-22] MEDS: cefTRIAXone SODIUM 1,000 MG in DEXTROSE 5% 50 ML IV SCH (15:20)
[2020-11-22] MEDS: DOXYCYCLINE HYCLATE 100 MG CAP PO SCH ×2 (15:20→21:22)
[2020-11-22] MEDS ORDERED: INSULIN HUMAN REGULAR PER UNIT 4 UNITS in SYRINGE 3.96 ML IV STA (20:11)
[2020-11-22] MEDS: INSULIN GLARGINE SOLOSTAR 100 UNITS/ML 3 ML PEN SC SCH (21:18)
[2020-11-23] MEDS: LEVOTHYROXINE SODIUM 25 MCG TABLET PO SCH (06:01)
--- NOTE | 2020-11-23 07:53 | Hospitalist Progress Note ---
Date of Service November 23, 2020 Assessment & Plan (1) COVID-19: (2) SOB (shortness of breath): Acute hypoxemic respiratory failure due to COVID-19: Patient is 84 y/o female with past medical history of diabetes mellitus type 2, hypertension, hyperlipidemia and anxiety presented to the ED with worsening shortness of breath, fever and weakness. Pt was discharged home night before re-admission , on oxygen supplement at HS CXR showed slight increase in mild bilateral airspace opacities which favor an infectious process such as viral pneumonia. Continue decadron 6mg IV Continue oxygen supplement out of the window for remdesivir and convalescent plasma Ferritin 406 --> 446--> ferritin 439, C-reactive 13.8--> 7.6-->3.2 and ESR 23--> 37 -->35 Procalcitonin negative Now pt again developed fever (11/22), CXR repeated - c/w worsening multifocal pna Will start Abx ceftriaxone and doxy Will continue titrate oxygen off Consider 2 step before discharge Overnight pulse oximetry done in the last admission and pt requires oxygen at HS continue monitor closely Hypomagnesemia: Mg 1.6 on admission replace and monitor Diabetes: Most recent HgA1c at 6.3 Will hold metformin Continue insulin sliding scale with novolog Continue monitor BS Dyslipidemia Continue atorvastatin 20 mg daily HTN (hypertension): BP stable Continue lisinopril 10 mg daily Anxiety: Continue Effexor 225 mg daily DVT prophylaxis Continue Lovenox subq CODE Status DNR Disposition Will discharge once medically stable Admission and Anticipated Discharge Date Admission Date: November 18, 2020 Subjective Pt was seen and examined for follow up of SOB , COVID 19 pna Lying in bed in no distress Pt said that she feels better today She is on 1.5L oxygen via [place] She had fever. Now afebrile. CXR ordered. Abx added to regimen She would like to wean off the oxygen before discharge Review of Systems Review of Systems: All systems reviewed & are unremarkable except as noted in HPI & below Constitutional: no fever and no chills Respiratory: + cough (improved) and + dyspnea (improved) Cardiovascular: no chest pain and no palpitations Gastrointestinal: no abdominal pain, no nausea and no vomiting Physical Exam Physical Exam: General- elderly female sitting up in bed, in no acute distress, on suppl. O2 via [place] Head- atraumatic Eyes- PERRL, EOMI, ENT- oropharynx clear Neck- supple, no JVD Lungs- very mild rhonchi noted, no wheezing Heart- regular rhythm; no murmur Abdomen- normal bowel sounds, soft, nontender Extremities- no calf tenderness Neuro- alert, oriented x 3; PERRL, EOMI; no facial palsy; no dysarthria, moves extremities Skin- warm & dry Results & Data Results & Data ([facility]) Vital Signs (Past 12 Hours) Vital Signs Temp Pulse Pulse Resp BP BP Pulse Ox 11/23/20 07:43 36.8 C 70 20 133/74 96 11/23/20 04:00 36.7 C 82 20 133/76 97 11/23/20 00:00 71 11/22/20 23:00 36.6 C 79 20 130/73 96 Laboratory Results 11/23/20 11/23/20 11/23/20 Range/Units 11:41 11:40 07:49 WBC 9.56 (4.8-10.8) K/uL RBC 4.09 L (4.2-5.4) M/uL Hgb 11.7 L (12.0-16.0) g/dL Hct 35.3 L (37-47) % MCV 86.3 (80-100) fL MCH 28.6 (25-34) pg MCHC 33.1 (32-36) g/dL RDW Std Deviation 42.4 (36.4-46.3) fL RDW Coeff of Irasema 13.3 (11.5-14.5) % Plt Count 481 H (130-400) K/uL MPV 9.5 (7.4-10.4) fL Sodium (136-145) mmol/L Potassium (3.5-5.1) mmol/L Chloride (98-107) mmol/L Carbon Dioxide (21-32) mmol/L Anion Gap (3-11) BUN (7-18) mg/dl Creatinine (0.6-1.2) mg/dl Est Cr Clr Drug Dosing ml/min Est GFR ( Amer) Est GFR (Non-Af Amer) BUN/Creatinine Ratio (10-20) Glucose (70-99) mg/dl POC Glucose 109 H 316 H* (70-99) mg/dl Calcium (8.5-10.1) mg/dl Magnesium (1.8-2.4) mg/dl 11/23/20 11/23/20 11/22/20 Range/Units 07:49 07:17 23:35 WBC (4.8-10.8) K/uL RBC (4.2-5.4) M/uL Hgb (12.0-16.0) g/dL Hct (37-47) % MCV (80-100) fL MCH (25-34) pg MCHC (32-36) g/dL RDW Std Deviation (36.4-46.3) fL RDW Coeff of Irasema (11.5-14.5) % Plt Count (130-400) K/uL MPV (7.4-10.4) fL Sodium 135 L (136-145) mmol/L Potassium 4.2 (3.5-5.1) mmol/L Chloride 100 (98-107) mmol/L Carbon Dioxide 31 (21-32) mmol/L Anion Gap 4.0 (3-11) BUN 13 (7-18) mg/dl Creatinine 0.62 (0.6-1.2) mg/dl Est Cr Clr Drug Dosing 46.9 ml/min Est GFR ( Amer) 96.6 Est GFR (Non-Af Amer) 83.4 BUN/Creatinine Ratio 21.3 H (10-20) Glucose 81 (70-99) mg/dl POC Glucose 89 195 H (70-99) mg/dl Calcium 8.4 L (8.5-10.1) mg/dl Magnesium 1.7 L (1.8-2.4) mg/dl 11/22/20 11/22/20 11/22/20 Range/Units 19:56 19:53 16:57 WBC (4.8-10.8) K/uL RBC (4.2-5.4) M/uL Hgb (12.0-16.0) g/dL Hct (37-47) % MCV (80-100) fL MCH (25-34) pg MCHC (32-36) g/dL RDW Std Deviation (36.4-46.3) fL RDW Coeff of Irasema (11.5-14.5) % Plt Count (130-400) K/uL MPV (7.4-10.4) fL Sodium (136-145) mmol/L Potassium (3.5-5.1) mmol/L Chloride (98-107) mmol/L Carbon Dioxide (21-32) mmol/L Anion Gap (3-11) BUN (7-18) mg/dl Creatinine (0.6-1.2) mg/dl Est Cr Clr Drug Dosing ml/min Est GFR ( Amer) Est GFR (Non-Af Amer) BUN/Creatinine Ratio (10-20) Glucose (70-99) mg/dl POC Glucose 357 H* 349 H* 159 H (70-99) mg/dl Calcium (8.5-10.1) mg/dl Magnesium (1.8-2.4) mg/dl Medications Administered Current Inpatient Medications Acetaminophen (Acetaminophen 325 Mg Tab) 325 mg PO QID PRN PRN Reason: Pain Stop: 12/18/20 12:00 Last Admin: 11/22/20 12:32 Dose: 325 mg Documented by: Atorvastatin Calcium (Atorvastatin 20 Mg Tab) 20 mg PO QDL YOANA Stop: 12/18/20 12:00 Last Admin: 11/23/20 12:29 Dose: 20 mg Documented by: Dextrose (Dextrose 50% 50 Ml Syringe) 25 - 50 ml IV UD PRN; Protocol PRN Reason: Hypoglycemia Protocol Stop: 12/18/20 12:00 Doxycycline Hyclate (Doxycycline Hyclate 100 Mg Cap) 100 mg PO BID YOANA Stop: 11/29/20 14:14 Last Admin: 11/23/20 08:32 Dose: 100 mg Documented by: Enoxaparin Sodium (Enoxaparin Inj 40 Mg/0.4 Ml Syr) 40 mg SQ QAM YOANA Stop: 12/19/20 09:59 Last Admin: 11/23/20 08:32 Dose: 40 mg Documented by: Fish Oil ([place]-3 (Purified Fish Oil) 1 Gm Cap) 1 gm PO QAM YOANA Stop: 12/19/20 08:59 Last Admin: 11/23/20 08:32 Dose: 1 gm Documented by: Glucagon (Glucagon For Inj 1 Mg Vial) 1 mg SQ UD PRN; Protocol PRN Reason: Hypoglycemia Protocol Stop: 12/18/20 12:00 Glucose (Glucose 10 Tabs/Tube) 4 - 8 tabs PO UD PRN; Protocol PRN Reason: Hypoglycemia Protocol Stop: 12/18/20 12:00 Glucose (Glucose 40% Gel 15 Gm Tube) 15 - 30 gm PO UD PRN; Protocol PRN Reason: Hypoglycemia Protocol Stop: 12/18/20 12:00 Dexamethasone 6 mg/ Syringe 1.5 mls @ 1 mls/min IV DAILY@1200 [facility] Stop: 12/18/20 12:29 Last Admin: 11/23/20 12:29 Dose: 1 mls/min Documented by: Ceftriaxone Sodium 1,000 mg/ (Dextrose) 50 mls @ 100 mls/hr IV Q24H [facility]; Protocol Stop: 11/29/20 14:14 Last Infusion: 11/23/20 14:34 Dose: Infused Documented by: Insulin Aspart (Insulin Aspart 100 Units/Ml 3 Ml Pen) 0 units SC ACHS [facility] Stop: 12/18/20 12:00 Last Admin: 11/23/20 12:27 Dose: 1 units Documented by: Insulin Glargine (Insulin Glargine Solostar 100 Units/Ml 3 Ml Pen) 5 units SC HS [facility] Stop: 12/22/20 20:59 Last Admin: 11/22/20 21:18 Dose: 5 units Documented by: Levothyroxine Sodium (Levothyroxine Sodium 25 Mcg Tablet) 25 mcg PO DAILYBB [facility] Stop: 12/19/20 06:29 Last Admin: 11/23/20 06:01 Dose: 25 mcg Documented by: Lisinopril (Lisinopril 10 Mg Tab) [facility] [place]: 12/19/20 08:59 Last Admin: 11/23/20 08:33 Dose: 10 mg Documented by: Loratadine (Loratadine 10 Mg Tab) 10 mg PO DAILY PRN PRN Reason: Congestion Stop: 12/18/20 12:00 Miscellaneous (Carbohydrates For Hypoglycemia ) 15 - 30 gm PO UD PRN PRN Reason: Hypoglycemia Protocol Stop: 12/18/20 12:00 Multivitamins/Minerals (Calcium 600mg + Vit D 400 Iu Tab) [facility] [place]: 12/19/20 08:59 Last Admin: 11/23/20 08:33 Dose: 1 tab Documented by: Multivitamins/Minerals (Cerovite Adv Formula Tab) 1 [facility] [place] Stop: 12/19/20 08:59 Last Admin: 11/23/20 08:33 Dose: 1 tab Documented by: Pantoprazole Sodium (Pantoprazole 40 Mg Tab) 40 mg PO [facility] Stop: 12/19/20 08:59 Last Admin: 11/23/20 08:33 Dose: 40 mg Documented by: Venlafaxine HCl (Venlafaxine Hcl Xr 75 Mg Capxr) 225 mg PO [facility] [place] Stop: 12/19/20 08:59 Last Admin: 11/23/20 08:33 Dose: 225 mg Documented by:
[2020-11-23] MEDS: DOXYCYCLINE HYCLATE 100 MG CAP PO SCH ×2 (08:32→20:35)
[2020-11-23] MEDS: ENOXAPARIN INJ 40 MG/0.4 ML SYR SQ SCH (08:32)
[2020-11-23] MEDS: OMEGA-3 (PURIFIED FISH OIL) 1 GM CAP PO SCH (08:32)
[2020-11-23] MEDS: lisinopril 10 MG TAB PO SCH (08:33)
[2020-11-23] MEDS: CEROVITE ADV FORMULA TAB PO SCH (08:33)
[2020-11-23] MEDS: PANTOprazole 40 MG TAB PO SCH (08:33)
[2020-11-23] MEDS: VENLAFAXINE HCL XR 75 MG CAPXR PO SCH (08:33)
[2020-11-23] MEDS: CALCIUM 600MG + VIT D 400 IU TAB PO SCH (08:33)
[2020-11-23 08:34] LABS: BUN Creatinine Ratio 21.3 (10-20); Calcium 8.4 mg/dl (8.5-10.1); Creatinine Clr Calc Pharmacy 46.9 ml/min; Est GFR (African American) 96.6; Est GFR (Non-African American) 83.4; Magnesium 1.7 mg/dl (1.8-2.4); Potassium 4.2 mmol/L (3.5-5.1)
[2020-11-23] MEDS: INSULIN ASPART 100 UNITS/ML 3 ML PEN SC SCH ×4 (08:36→20:33)
[2020-11-23 08:38] LABS: Hematocrit (blood only) 35.3 % (37-47); Hemoglobin 11.7 g/dL (12.0-16.0); Mean Corpuscular Hemoglobin 28.6 pg (25-34); Mean Corpuscular Hgb Conc 33.1 g/dL (32-36); Mean Corpuscular Volume 86.3 fL (80-100); Mean Platelet Volume 9.5 fL (7.4-10.4); Platelet Count 481 K/uL (130-400); RDW Coefficient of Variation 13.3 % (11.5-14.5); RDW Standard Deviation 42.4 fL (36.4-46.3); Red Blood Count 4.09 M/uL (4.2-5.4); White Blood Count 9.56 K/uL (4.8-10.8)
[2020-11-23] MEDS ORDERED: MAGNESIUM SULFATE / D5W 1 GM/100 ML BAG IV ONE (12:15)
[2020-11-23] MEDS: dexAMETHasone 6 MG in SYRINGE 0 ML IV SCH (12:29)
[2020-11-23] MEDS: ATORVASTATIN 20 MG TAB PO SCH (12:29)
[2020-11-23] MEDS: cefTRIAXone SODIUM 1,000 MG in DEXTROSE 5% 50 ML IV SCH (13:53)
--- NOTE | 2020-11-23 18:12 | Discharge Summary ---
Date of Service November 23, 2020 Admission HPI Per Admitting Provider This is 84 yo F with PMHx of DM II, HLD, anxiety, nausea and breast cancer who presents with several complaints including weakness, shortness of breath, headache and nausea/vomiting to the ER. History is obtained from her niece, Ayhsa via phone in the ER room, as the patient is COVID-19 positive. On Friday, pt began feeling worse with increased weakness and shortness of breath, and at baseline does not require O2. Last evening developed nausea and vomiting, so her niece made her an appointment with PCP, however after conversation with PCP nurse, they preferred that she went to the ER and sent her here. Aysha denies any known COVID-19 contacts, as she lives with the patient who does not travel or goes out, as she does basic things like grocery shopping, etc, due to the COVID-19 pandemic. She reports pt had a low grade fever of 100, headache, poor appetite, stomach pain, but no diarrhea. Pt took morning medications and has not had issues keeping them down. Admission Exam Per Admitting Provider Gen-AAO x 3, NAD, Afebrile Here Head-NCAT, EOMI, PERRLA, Anicteric Sclera, No Posterior Pharyngeal Erythema Neck-Supple, No JVD, No Thyromegaly, No Masses, No LAD, No Bruits Lungs-Clear to Auscultation Bilaterally, No Rales, No Rhonchi, No Wheezing, No Crepitus Chest-No S4, +S1, +S2, No S3, No Murmurs, No Rubs, No Gallops, No Ectopy Abdomen-Soft, Bowel Sounds Present, Non Tender, Non Distended, No Hepatomegaly, No Splenomegaly, No Palpable Masses, No Rebound, No Rigidity, No Guarding Musculoskeletal-Full Range of Motion Bilaterally, No CVAT Extremities-No Cyanosis, No Clubbing, No Edema, +EM Rash Nuero-Cranial Nerves II-XII grossly intact, Motor WNL, DTRs WNL, Strength WNL, Non Focal Psych-Normal Mood Principal Diagnosis COVID 19 INFECTION, PNEUMONIA Discharge Exam General- oriented x 3, not in distress, speaks in sentences with no effort or accessory muscle use Eyes- anicteric Neck- no JVD Lungs- clear breath sounds bilaterally, no rales/wheezes Heart- normal rate, regular rhythm; no murmurs Abdomen- normal bowel sounds, nondistended, soft, nontender Extremities- no pretibial edema, no calf tenderness Neuro- alert, oriented x 3; no gross focal neurologic deficits Skin- warm & dry Discharge Data Allergies Allergy/AdvReac Type Severity Reaction Status Date / Time Sulfa (Sulfonamide Allergy Severe DIFFICULTY Verified 11/18/20 08:10 Antibiotics) BREATHING sulfamethoxazole Allergy Severe DIFFICULTY Verified 11/18/20 08:10 BREATHING Consultations 11/18/20 08:00 ED Decision to Admit Stat Hospital Course (1) COVID-19: (2) SOB (shortness of breath): (1) Acute hypoxemic respiratory failure due to COVID-19: per Dr Lackey notes: Patient is 84-year-old female with past medical history of diabetes mellitus type 2, hypertension, hyperlipidemia and anxiety presented to the ED with worsening shortness of breath. She was found to be Covid positive. -- repeat CXR : IMPRESSION: Faint hazy airspace opacities within the left midlung zone likely representing a viral pneumonia. -- patient speaking in sentences with no effort on room air states she is back to her baseline and would like to be discharged -- received Decadron IV discharge on Prednisone taper and O2 at night -- patient given instructions as well as her niece over the phone re: COVID precautions, worsening signs/symptoms they are agreeable, understandable, comfortable with the plan of care (2) Hypomagnesemia: Repleted (3) Diabetes: - HgA1c at 6.3 (4) High cholesterol: - Cont atorvastatin 20 mg daily (5) HTN (hypertension): - Continue lisinopril 10 mg daily (6) Nausea: - Zofran prn (7) Anxiety: - Continue Effexor 225 mg daily (8) DVT prophylaxis: - teds Admission and Anticipated Discharge D Total Time Total Time Spent Total Time Spent (In Minutes): > 30 MINUTES Discharge Plan Discharge Items Reason For Visit: FEVER,SOB Medications and DC Order Prescriptions: No Action metformin 500 mg tablet 1,000 mg PO QAM RF: 0 venlafaxine 75 mg capsule,extended release 24hr 225 mg PO QAM RF: 0 atorvastatin 20 mg tablet 20 mg PO QDL RF: 0 alendronate 70 mg tablet 70 mg PO WK RF: 0 calcium carbonate-vitamin D3 [Calcium 600 + D(3)] 600 mg(1,500mg) -200 unit Tablet 1 tab PO QAM RF: 0 levothyroxine 25 mcg tablet 25 mcg PO QAM RF: 0 lisinopril 10 mg tablet 10 mg PO QAM RF: 0 multivitamin with minerals Tablet 1 tab PO QAM RF: 0 loratadine [Claritin] 10 mg Tablet 10 mg PO DAILY PRN (Reason: Congestion) RF: 0 omega 6-tbd-aip-fish oil [Fish Oil] 1,000 mg (120 mg-180 mg) Capsule 1 cap PO QAM RF: 0 (DME) Oxygen Home Liters Per Minute See Rx Instructions .ROUTE .COMPLEX Qty: 1 RF: 0 prednisone 10 mg tablet 10 mg PO UD Qty: 10 RF: 0 acetaminophen [Tylenol] 325 mg Tablet 325 mg PO QID PRN (Reason: Pain) RF: 0 pantoprazole 20 mg tablet,delayed release (DR/EC) 20 mg PO QAM RF: 0 Admission Data Admit Date/Time: 11/18/20 10:05 Attending Provider: Surinder Sinclair Admit Provider: Melissa Wheeler Primary Care Provider: [place] Other Providers: Melissa Wheeler
[2020-11-23] MEDS: INSULIN GLARGINE SOLOSTAR 100 UNITS/ML 3 ML PEN SC SCH (20:31)
[2020-11-23] MEDS: guaiFENesin 600 MG TABCR PO SCH (20:35)
[2020-11-24] MEDS: LEVOTHYROXINE SODIUM 25 MCG TABLET PO SCH (06:03)
[2020-11-24 08:41] LABS: BUN Creatinine Ratio 25.3 (10-20); Calcium 8.6 mg/dl (8.5-10.1); Creatinine Clr Calc Pharmacy 49.3 ml/min; Est GFR (African American) 98.2; Est GFR (Non-African American) 84.8; Magnesium 1.9 mg/dl (1.8-2.4); Potassium 4.4 mmol/L (3.5-5.1)
[2020-11-24] MEDS: OMEGA-3 (PURIFIED FISH OIL) 1 GM CAP PO SCH (08:42)
[2020-11-24] MEDS: CEROVITE ADV FORMULA TAB PO SCH (08:42)
[2020-11-24] MEDS: VENLAFAXINE HCL XR 75 MG CAPXR PO SCH (08:42)
[2020-11-24] MEDS: lisinopril 10 MG TAB PO SCH (08:42)
[2020-11-24] MEDS: CALCIUM 600MG + VIT D 400 IU TAB PO SCH (08:43)
[2020-11-24] MEDS: DOXYCYCLINE HYCLATE 100 MG CAP PO SCH ×2 (08:43→20:30)
[2020-11-24] MEDS: guaiFENesin 600 MG TABCR PO SCH ×2 (08:43→20:28)
[2020-11-24] MEDS: ENOXAPARIN INJ 40 MG/0.4 ML SYR SQ SCH (08:44)
[2020-11-24] MEDS: PANTOprazole 40 MG TAB PO SCH (08:44)
--- NOTE | 2020-11-24 08:49 | Hospitalist Progress Note ---
Date of Service November 24, 2020 Assessment & Plan (1) COVID-19: (2) SOB (shortness of breath): (1) COVID-19: (2) SOB (shortness of breath): Acute hypoxemic respiratory failure due to COVID-19: Patient is 84 y/o female with past medical history of diabetes mellitus type 2, hypertension, hyperlipidemia and anxiety presented to the ED with worsening shortness of breath, fever and weakness. Pt was discharged home night before re-admission , on oxygen supplement at HS CXR showed slight increase in mild bilateral airspace opacities which favor an infectious process such as viral pneumonia. Continue decadron 6mg IV Continue oxygen supplement out of the window for remdesivir and convalescent plasma Ferritin 406 --> 446--> ferritin 439, C-reactive 13.8--> 7.6-->3.2 and ESR 23--> 37 -->35 Procalcitonin negative Now pt again developed fever (11/22), CXR repeated - c/w worsening multifocal pna started Abx ceftriaxone and doxy Will continue titrate oxygen off Consider 2 step before discharge Overnight pulse oximetry done in the last admission and pt requires oxygen at HS continue monitor closely Hypomagnesemia: Mg 1.6 on admission replace and monitor Diabetes: Most recent HgA1c at 6.3 Will hold metformin Continue insulin sliding scale with novolog Continue monitor BS Dyslipidemia: Continue atorvastatin 20 mg daily HTN (hypertension): BP stable Continue lisinopril 10 mg daily Anxiety: Continue Effexor 225 mg daily DVT prophylaxis: Continue Lovenox subq CODE Status DNR Disposition: Will discharge once medically stable Admission and Anticipated Discharge Date Admission Date: November 18, 2020 Subjective Pt was seen and examined for follow up of SOB , COVID 19 pna Sitting up in chair, eating. Says she feels better. Reports using IS and flutter valve. She is on 2L vs. RA on and off She had fever. Now afebrile. CXR ordered. Abx added to regimen She would like to wean off the oxygen before discharge Review of Systems Review of Systems: All systems reviewed & are unremarkable except as noted in HPI & below Constitutional: no fever and no chills Respiratory: + cough (improved) and + dyspnea (improved) Cardiovascular: no chest pain and no palpitations Gastrointestinal: no abdominal pain, no nausea and no vomiting Physical Exam Physical Exam: General- elderly female sitting up in bed, in no acute distress, on suppl. O2 via [place] Head- atraumatic Eyes- PERRL, EOMI, ENT- oropharynx clear Neck- supple, no JVD Lungs- very mild rhonchi noted, no wheezing Heart- regular rhythm; no murmur Abdomen- normal bowel sounds, soft, nontender Extremities- no calf tenderness Neuro- alert, oriented x 3; PERRL, EOMI; no facial palsy; no dysarthria, moves extremities Skin- warm & dry Results & Data Results & Data ([facility]) Vital Signs (Past 12 Hours) Vital Signs Temp Pulse Pulse Resp BP Pulse Ox 11/24/20 08:00 36.4 C L 79 18 141/76 H 91 11/24/20 05:52 89 11/24/20 04:30 36.6 C 81 20 148/69 H 98 11/23/20 22:43 36.7 C 92 H 20 148/78 H 96 Laboratory Results 11/24/20 11/23/20 11/23/20 Range/Units 07:13 20:07 16:45 Sodium 134 L (136-145) mmol/L Potassium 4.4 (3.5-5.1) mmol/L Chloride 101 (98-107) mmol/L Carbon Dioxide 29 (21-32) mmol/L Anion Gap 4.0 (3-11) BUN 15 (7-18) mg/dl Creatinine 0.59 L (0.6-1.2) mg/dl Est Cr Clr Drug Dosing 49.3 ml/min Est GFR ( Amer) 98.2 Est GFR (Non-Af Amer) 84.8 BUN/Creatinine Ratio 25.3 H (10-20) Glucose 84 (70-99) mg/dl POC Glucose 297 H 197 H (70-99) mg/dl Calcium 8.6 (8.5-10.1) mg/dl Magnesium 1.9 (1.8-2.4) mg/dl 11/23/20 11/23/20 Range/Units 11:41 11:40 Sodium (136-145) mmol/L Potassium (3.5-5.1) mmol/L Chloride (98-107) mmol/L Carbon Dioxide (21-32) mmol/L Anion Gap (3-11) BUN (7-18) mg/dl Creatinine (0.6-1.2) mg/dl Est Cr Clr Drug Dosing ml/min Est GFR ( Amer) Est GFR (Non-Af Amer) BUN/Creatinine Ratio (10-20) Glucose (70-99) mg/dl POC Glucose 109 H 316 H* (70-99) mg/dl Calcium (8.5-10.1) mg/dl Magnesium (1.8-2.4) mg/dl Medications Administered Current Inpatient Medications Acetaminophen (Acetaminophen 325 Mg Tab) 325 mg PO QID PRN PRN Reason: Pain Stop: 12/18/20 12:00 Last Admin: 11/22/20 12:32 Dose: 325 mg Documented by: Atorvastatin Calcium (Atorvastatin 20 Mg Tab) 20 mg PO QDL [facility] Stop: 12/18/20 12:00 Last Admin: 11/23/20 12:29 Dose: 20 mg Documented by: Dextrose (Dextrose 50% 50 Ml Syringe) 25 - 50 ml IV UD PRN; Protocol PRN Reason: Hypoglycemia Protocol Stop: 12/18/20 12:00 Doxycycline Hyclate (Doxycycline Hyclate 100 Mg Cap) 100 mg PO BID [facility] Stop: 11/29/20 14:14 Last Admin: 11/24/20 08:43 Dose: 100 mg Documented by: Enoxaparin Sodium (Enoxaparin Inj 40 Mg/0.4 Ml Syr) 40 mg SQ QAM [facility] Stop: 12/19/20 09:59 Last Admin: 11/24/20 08:44 Dose: 40 mg Documented by: Fish Oil ([place]-3 (Purified Fish Oil) 1 Gm Cap) 1 gm PO QAM [facility] Stop: 12/19/20 08:59 Last Admin: 11/24/20 08:42 Dose: 1 gm Documented by: Glucagon (Glucagon For Inj 1 Mg Vial) 1 mg SQ UD PRN; Protocol PRN Reason: Hypoglycemia Protocol Stop: 12/18/20 12:00 Glucose (Glucose 10 Tabs/Tube) 4 - 8 tabs PO UD PRN; Protocol PRN Reason: Hypoglycemia Protocol Stop: 12/18/20 12:00 Glucose (Glucose 40% Gel 15 Gm Tube) 15 - 30 gm PO UD PRN; Protocol PRN Reason: Hypoglycemia Protocol Stop: 12/18/20 12:00 Guaifenesin (Guaifenesin 600 Mg Tabcr) 600 mg PO Q12 [facility] Stop: 12/23/20 20:59 Last Admin: 11/24/20 08:43 Dose: 600 mg Documented by: Dexamethasone 6 mg/ Syringe 1.5 mls @ 1 mls/min IV DAILY@1200 [facility] Stop: 12/18/20 12:29 Last Admin: 11/23/20 12:29 Dose: 1 mls/min Documented by: Ceftriaxone Sodium 1,000 mg/ (Dextrose) 50 mls @ 100 mls/hr IV Q24H [facility]; Protocol Stop: 11/29/20 14:14 Last Infusion: 11/23/20 14:34 Dose: Infused Documented by: Insulin Aspart (Insulin Aspart 100 Units/Ml 3 Ml Pen) 0 units SC ACHS [facility] Stop: 12/18/20 12:00 Last Admin: 11/23/20 20:33 Dose: 5 units Documented by: Insulin Glargine (Insulin Glargine Solostar 100 Units/Ml 3 Ml Pen) 5 units SC HS [facility] Stop: 12/22/20 20:59 Last Admin: 11/23/20 20:31 Dose: 5 units Documented by: Levothyroxine Sodium (Levothyroxine Sodium 25 Mcg Tablet) 25 mcg PO DAILYBB [facility] Stop: 12/19/20 06:29 Last Admin: 11/24/20 06:03 Dose: 25 mcg Documented by: Lisinopril (Lisinopril 10 Mg Tab) 10 mg PO QAM [facility] Stop: 12/19/20 08:59 Last Admin: 11/24/20 08:42 Dose: 10 mg Documented by: Loratadine (Loratadine 10 Mg Tab) 10 mg PO DAILY PRN PRN Reason: Congestion Stop: 12/18/20 12:00 Miscellaneous (Carbohydrates For Hypoglycemia ) 15 - 30 gm PO UD PRN PRN Reason: Hypoglycemia Protocol Stop: 12/18/20 12:00 Multivitamins/Minerals (Calcium 600mg + Vit D 400 Iu Tab) [facility] Stop: 12/19/20 08:59 Last Admin: 11/24/20 08:43 Dose: 1 tab Documented by: Multivitamins/Minerals (Cerovite Adv Formula Tab) 1 [facility] Stop: 12/19/20 08:59 Last Admin: 11/24/20 08:42 Dose: 1 tab Documented by: Pantoprazole Sodium (Pantoprazole 40 Mg Tab) 40 mg PO [facility] Stop: 12/19/20 08:59 Last Admin: 11/24/20 08:44 Dose: 40 mg Documented by: Venlafaxine HCl (Venlafaxine Hcl Xr 75 Mg Capxr) 225 mg PO [facility] Stop: 12/19/20 08:59 Last Admin: 11/24/20 08:42 Dose: 225 mg Documented by:
[2020-11-24] MEDS: INSULIN ASPART 100 UNITS/ML 3 ML PEN SC SCH ×4 (08:51→20:28)
[2020-11-24] MEDS: ATORVASTATIN 20 MG TAB PO SCH (11:53)
[2020-11-24] MEDS: dexAMETHasone 6 MG in SYRINGE 0 ML IV SCH (11:54)
[2020-11-24] MEDS: cefTRIAXone SODIUM 1,000 MG in DEXTROSE 5% 50 ML IV SCH (14:02)
[2020-11-24] MEDS: INSULIN GLARGINE SOLOSTAR 100 UNITS/ML 3 ML PEN SC SCH (20:28)
[2020-11-25] MEDS: LEVOTHYROXINE SODIUM 25 MCG TABLET PO SCH (06:20)
[2020-11-25] MEDS: OMEGA-3 (PURIFIED FISH OIL) 1 GM CAP PO SCH (07:43)
[2020-11-25] MEDS: CEROVITE ADV FORMULA TAB PO SCH (07:43)
[2020-11-25] MEDS: lisinopril 10 MG TAB PO SCH (07:43)
[2020-11-25] MEDS: PANTOprazole 40 MG TAB PO SCH (07:43)
[2020-11-25] MEDS: ATORVASTATIN 20 MG TAB PO SCH ×2 (07:44→11:23)
[2020-11-25] MEDS: VENLAFAXINE HCL XR 75 MG CAPXR PO SCH (07:44)
[2020-11-25] MEDS: ENOXAPARIN INJ 40 MG/0.4 ML SYR SQ SCH (07:44)
[2020-11-25] MEDS: CALCIUM 600MG + VIT D 400 IU TAB PO SCH (07:44)
[2020-11-25] MEDS: DOXYCYCLINE HYCLATE 100 MG CAP PO SCH ×2 (07:44→20:31)
[2020-11-25] MEDS: guaiFENesin 600 MG TABCR PO SCH ×2 (07:44→20:30)
[2020-11-25] MEDS: INSULIN ASPART 100 UNITS/ML 3 ML PEN SC SCH ×4 (08:14→20:31)
--- NOTE | 2020-11-25 08:20 | Hospitalist Progress Note ---
Date of Service November 25, 2020 Assessment & Plan (1) COVID-19: (2) SOB (shortness of breath): (1) COVID-19: (2) SOB (shortness of breath): Acute hypoxemic respiratory failure due to COVID-19: Patient is 84 y/o female with past medical history of diabetes mellitus type 2, hypertension, hyperlipidemia and anxiety presented to the ED with worsening shortness of breath, fever and weakness. Pt was discharged home night before re-admission , on oxygen supplement at HS CXR showed slight increase in mild bilateral airspace opacities which favor an infectious process such as viral pneumonia. Continue decadron 6mg IV Continue oxygen supplement out of the window for remdesivir and convalescent plasma Ferritin 406 --> 446--> ferritin 439, C-reactive 13.8--> 7.6-->3.2 and ESR 23--> 37 -->35 Procalcitonin negative Now pt again developed fever (11/22), CXR repeated - c/w worsening multifocal pna started Abx ceftriaxone and doxy She persistently requires 2L via [place] Will continue titrate oxygen off Consider 2 step before discharge Overnight pulse oximetry done in the last admission and pt requires oxygen at HS continue monitor closely Hypomagnesemia: Mg 1.6 on admission replace and monitor Diabetes: Most recent HgA1c at 6.3 Will hold metformin Continue insulin sliding scale with novolog Continue monitor BS Dyslipidemia: Continue atorvastatin 20 mg daily HTN (hypertension): BP stable Continue lisinopril 10 mg daily Anxiety: Continue Effexor 225 mg daily DVT prophylaxis: Continue Lovenox subq CODE Status DNR Disposition: Will discharge once medically stable Admission and Anticipated Discharge Date Admission Date: November 18, 2020 Subjective Pt was seen and examined for follow up of SOB , COVID 19 pna Sitting up in bed, in NAD. Says she feels better. Reports using IS and flutter valve. She is persistently on 2L O2 via [place]. Review of Systems Review of Systems: All systems reviewed & are unremarkable except as noted in HPI & below Constitutional: no fever and no chills Respiratory: + cough (improved) and + dyspnea (improved) Cardiovascular: no chest pain, no palpitations and no edema Gastrointestinal: no abdominal pain, no nausea and no vomiting Physical Exam Physical Exam: General- elderly female sitting up in bed, in no acute distress, on suppl. O2 2L via [place] Head- atraumatic Eyes- PERRL, EOMI, ENT- oropharynx clear Neck- supple, no JVD Lungs- very mild rhonchi noted, no wheezing Heart- regular rhythm; no murmur Abdomen- normal bowel sounds, soft, nontender Extremities- no calf tenderness Neuro- alert, oriented x 3; PERRL, EOMI; no facial palsy; no dysarthria, moves extremities Skin- warm & dry Results & Data Results & Data ([facility]) Vital Signs (Past 12 Hours) Vital Signs Temp Pulse Pulse Pulse Resp BP BP 11/25/20 07:01 36.7 C 77 16 163/80 H 11/25/20 03:12 36.7 C 84 18 129/66 11/25/20 00:02 71 11/24/20 23:09 36.7 C 68 18 111/65 Pulse Ox 11/25/20 07:01 99 11/25/20 03:12 96 11/25/20 00:02 11/24/20 23:09 99 Laboratory Results 11/25/20 11/25/20 11/25/20 Range/Units 11:51 11:17 11:16 Sodium (136-145) mmol/L Potassium (3.5-5.1) mmol/L Chloride (98-107) mmol/L Carbon Dioxide (21-32) mmol/L Anion Gap (3-11) BUN (7-18) mg/dl Creatinine (0.6-1.2) mg/dl Est Cr Clr Drug Dosing ml/min Est GFR ( Amer) Est GFR (Non-Af Amer) BUN/Creatinine Ratio (10-20) Glucose (70-99) mg/dl POC Glucose 89 65 L* 61 L* (70-99) mg/dl Calcium (8.5-10.1) mg/dl Phosphorus (2.5-4.9) mg/dl Magnesium (1.8-2.4) mg/dl 11/25/20 11/25/20 11/24/20 Range/Units 08:23 07:25 20:13 Sodium 133 L (136-145) mmol/L Potassium 4.3 (3.5-5.1) mmol/L Chloride 99 (98-107) mmol/L Carbon Dioxide 28 (21-32) mmol/L Anion Gap 6.0 (3-11) BUN 17 (7-18) mg/dl Creatinine 0.67 (0.6-1.2) mg/dl Est Cr Clr Drug Dosing 43.4 ml/min Est GFR ( Amer) 94.2 Est GFR (Non-Af Amer) 81.3 BUN/Creatinine Ratio 25.7 H (10-20) Glucose 112 H (70-99) mg/dl POC Glucose 102 H 252 H (70-99) mg/dl Calcium 9.0 (8.5-10.1) mg/dl Phosphorus 3.9 (2.5-4.9) mg/dl Magnesium 1.5 L (1.8-2.4) mg/dl 11/24/20 Range/Units 16:31 Sodium (136-145) mmol/L Potassium (3.5-5.1) mmol/L Chloride (98-107) mmol/L Carbon Dioxide (21-32) mmol/L Anion Gap (3-11) BUN (7-18) mg/dl Creatinine (0.6-1.2) mg/dl Est Cr Clr Drug Dosing ml/min Est GFR ( Amer) Est GFR (Non-Af Amer) BUN/Creatinine Ratio (10-20) Glucose (70-99) mg/dl POC Glucose 153 H (70-99) mg/dl Calcium (8.5-10.1) mg/dl Phosphorus (2.5-4.9) mg/dl Magnesium (1.8-2.4) mg/dl Medications Administered Current Inpatient Medications Acetaminophen (Acetaminophen 325 Mg Tab) 325 mg PO QID PRN PRN Reason: Pain Stop: 12/18/20 12:00 Last Admin: 11/22/20 12:32 Dose: 325 mg Documented by: Atorvastatin Calcium (Atorvastatin 20 Mg Tab) 20 mg PO QDL [facility] Stop: 12/18/20 12:00 Last Admin: 11/24/20 11:53 Dose: 20 mg Documented by: Dextrose (Dextrose 50% 50 Ml Syringe) 25 - 50 ml IV UD PRN; Protocol PRN Reason: Hypoglycemia Protocol Stop: 12/18/20 12:00 Doxycycline Hyclate (Doxycycline Hyclate 100 Mg Cap) 100 mg PO BID [facility] Stop: 11/29/20 14:14 Last Admin: 11/25/20 07:44 Dose: 100 mg Documented by: Enoxaparin Sodium (Enoxaparin Inj 40 Mg/0.4 Ml Syr) 40 mg SQ QAM [facility] Stop: 12/19/20 09:59 Last Admin: 11/25/20 07:44 Dose: 40 mg Documented by: Fish Oil ([place]-3 (Purified Fish Oil) 1 Gm Cap) 1 gm PO QAM [facility] Stop: 12/19/20 08:59 Last Admin: 11/25/20 07:43 Dose: 1 gm Documented by: Glucagon (Glucagon For Inj 1 Mg Vial) 1 mg SQ UD PRN; Protocol PRN Reason: Hypoglycemia Protocol Stop: 12/18/20 12:00 Glucose (Glucose 10 Tabs/Tube) 4 - 8 tabs PO UD PRN; Protocol PRN Reason: Hypoglycemia Protocol Stop: 12/18/20 12:00 Glucose (Glucose 40% Gel 15 Gm Tube) 15 - 30 gm PO UD PRN; Protocol PRN Reason: Hypoglycemia Protocol Stop: 12/18/20 12:00 Guaifenesin (Guaifenesin 600 Mg Tabcr) 600 mg PO Q12 [facility] Stop: 12/23/20 20:59 Last Admin: 11/25/20 07:44 Dose: 600 mg Documented by: Dexamethasone 6 mg/ Syringe 1.5 mls @ 1 mls/min IV DAILY@1200 [facility] Stop: 12/18/20 12:29 Last Admin: 11/24/20 11:54 Dose: 1 mls/min Documented by: Ceftriaxone Sodium 1,000 mg/ (Dextrose) 50 mls @ 100 mls/hr IV Q24H [facility]; Protocol Stop: 11/29/20 14:14 Last Infusion: 11/24/20 14:35 Dose: Infused Documented by: Insulin Aspart (Insulin Aspart 100 Units/Ml 3 Ml Pen) 0 units SC ACHS [facility] Stop: 12/18/20 12:00 Last Admin: 11/25/20 08:14 Dose: 3 units Documented by: Insulin Glargine (Insulin Glargine Solostar 100 Units/Ml 3 Ml Pen) 5 units SC HS [facility] Stop: 12/22/20 20:59 Last Admin: 11/24/20 20:28 Dose: 5 units Documented by: Levothyroxine Sodium (Levothyroxine Sodium 25 Mcg Tablet) 25 mcg PO DAILYBB [facility] Stop: 12/19/20 06:29 Last Admin: 11/25/20 06:20 Dose: 25 mcg Documented by: Lisinopril (Lisinopril 10 Mg Tab) [facility] Stop: 12/19/20 08:59 Last Admin: 11/25/20 07:43 Dose: 10 mg Documented by: Loratadine (Loratadine 10 Mg Tab) 10 mg PO DAILY PRN PRN Reason: Congestion Stop: 12/18/20 12:00 Miscellaneous (Carbohydrates For Hypoglycemia ) 15 - 30 gm PO UD PRN PRN Reason: Hypoglycemia Protocol Stop: 12/18/20 12:00 Multivitamins/Minerals (Calcium 600mg + Vit D 400 Iu Tab) 1 tab PO [facility] Stop: 12/19/20 08:59 Last Admin: 11/25/20 07:44 Dose: 1 tab Documented by: Multivitamins/Minerals (Cerovite Adv Formula Tab) 1 tab [facility] Stop: 12/19/20 08:59 Last Admin: 11/25/20 07:43 Dose: 1 tab Documented by: Pantoprazole Sodium (Pantoprazole 40 Mg Tab) 40 mg PO [facility] Stop: 12/19/20 08:59 Last Admin: 11/25/20 07:43 Dose: 40 mg Documented by: Venlafaxine HCl (Venlafaxine Hcl Xr 75 Mg Capxr) 225 mg PO [facility] Stop: 12/19/20 08:59 Last Admin: 11/25/20 07:44 Dose: 225 mg Documented by:
[2020-11-25 09:28] LABS: BUN Creatinine Ratio 25.7 (10-20); Creatinine Clr Calc Pharmacy 43.4 ml/min; Est GFR (African American) 94.2; Est GFR (Non-African American) 81.3; Magnesium 1.5 mg/dl (1.8-2.4); Phosphorus 3.9 mg/dl (2.5-4.9); Potassium 4.3 mmol/L (3.5-5.1)
[2020-11-25] MEDS: dexAMETHasone 6 MG in SYRINGE 0 ML IV SCH (12:31)
[2020-11-25] MEDS: cefTRIAXone SODIUM 1,000 MG in DEXTROSE 5% 50 ML IV SCH (13:14)
--- NOTE | 2020-11-25 13:54 | XRay Report ---
XR chest 1V portable HISTORY: 84 years-old Female follow up follow-up study in a patient with shortness of breath and pul monary opacities COMPARISON: Chest radiograph 11/22/2020, chest CT 11/02/2013 TECHNIQUE: Portable AP view of the chest FINDINGS: Cardiomediastinal and hilar silhouettes are within normal limits. Calcified plaque of the thoracic ao rta. There is improved aeration of the lungs with mild persistent ill-defined hazy airspace opacities , most pronounced in the lateral right mid upper lung. No pneumothorax, large pleural effusion or ove rt pulmonary edema. Bones of the chest appear grossly intact. IMPRESSION: Improved aeration of the lungs with persistent hazy bilateral airspace opacities suggesti ve of resolving pneumonia. Follow-up imaging to document resolution recommended. ACT 112: Negative or not required by law. The above report was generated using voice recognition software. It may contain grammatical, syntax o r spelling errors. Electronically signed by: Smooth Avila M.D. 11/25/2020 1:52 PM
[2020-11-25] MEDS: MAGNESIUM SULFATE / D5W 1 GM/100 ML BAG IV SCH ×2 (13:55→15:59)
[2020-11-25] MEDS: INSULIN GLARGINE SOLOSTAR 100 UNITS/ML 3 ML PEN SC SCH (20:55)
[2020-11-26] MEDS: LEVOTHYROXINE SODIUM 25 MCG TABLET PO SCH (06:29)
[2020-11-26] MEDS: CEROVITE ADV FORMULA TAB PO SCH (07:27)
[2020-11-26] MEDS: VENLAFAXINE HCL XR 75 MG CAPXR PO SCH (07:27)
[2020-11-26] MEDS: CALCIUM 600MG + VIT D 400 IU TAB PO SCH (07:27)
[2020-11-26] MEDS: DOXYCYCLINE HYCLATE 100 MG CAP PO SCH ×2 (07:27→20:32)
[2020-11-26] MEDS: OMEGA-3 (PURIFIED FISH OIL) 1 GM CAP PO SCH (07:28)
[2020-11-26] MEDS: lisinopril 10 MG TAB PO SCH (07:29)
[2020-11-26] MEDS: PANTOprazole 40 MG TAB PO SCH (07:29)
[2020-11-26] MEDS: ENOXAPARIN INJ 40 MG/0.4 ML SYR SQ SCH (07:30)
[2020-11-26 07:35] LABS: Hematocrit (blood only) 34.1 % (37-47); Hemoglobin 11.5 g/dL (12.0-16.0); Mean Corpuscular Hemoglobin 28.9 pg (25-34); Mean Corpuscular Hgb Conc 33.7 g/dL (32-36); Mean Corpuscular Volume 85.7 fL (80-100); Mean Platelet Volume 9.3 fL (7.4-10.4); Platelet Count 491 K/uL (130-400); RDW Coefficient of Variation 13.4 % (11.5-14.5); RDW Standard Deviation 42.1 fL (36.4-46.3); Red Blood Count 3.98 M/uL (4.2-5.4)
[2020-11-26 08:01] LABS: BUN Creatinine Ratio 27.7 (10-20); C Reactive Protein 1.21 mg/dl (0-0.29); Calcium 9.1 mg/dl (8.5-10.1); Creatinine Clr Calc Pharmacy 40.9 ml/min; Est GFR (African American) 91.3; Est GFR (Non-African American) 78.8; Magnesium 1.9 mg/dl (1.8-2.4); Phosphorus 4.1 mg/dl (2.5-4.9); Potassium 4.7 mmol/L (3.5-5.1)
[2020-11-26] MEDS: INSULIN ASPART 100 UNITS/ML 3 ML PEN SC SCH ×4 (08:24→20:31)
[2020-11-26] MEDS: INSULIN GLARGINE SOLOSTAR 100 UNITS/ML 3 ML PEN SC SCH ×2 (08:25→20:32)
[2020-11-26] MEDS: guaiFENesin 600 MG TABCR PO SCH ×2 (08:26→20:32)
--- NOTE | 2020-11-26 09:08 | Hospitalist Progress Note ---
Date of Service November 26, 2020 Assessment & Plan (1) COVID-19: (2) SOB (shortness of breath): (1) COVID-19: (2) SOB (shortness of breath): Acute hypoxemic respiratory failure due to COVID-19: Patient is 84 y/o female with past medical history of diabetes mellitus type 2, hypertension, hyperlipidemia and anxiety presented to the ED with worsening shortness of breath, fever and weakness. Pt was discharged home night before re-admission , on oxygen supplement at HS CXR showed slight increase in mild bilateral airspace opacities which favor an infectious process such as viral pneumonia. Continue decadron 6mg IV Continue oxygen supplement out of the window for remdesivir and convalescent plasma Ferritin 406 --> 446--> ferritin 439, C-reactive 13.8--> 7.6-->3.2 and ESR 23--> 37 -->35 Procalcitonin negative Now pt again developed fever (11/22), CXR repeated - c/w worsening multifocal pna started Abx ceftriaxone and doxy Currently on RA 2 step ordered Overnight pulse oximetry done in the last admission and pt requires oxygen at HS Nocturnal pulse ox ordered continue monitor closely Hypomagnesemia: Mg 1.6 on admission replace and monitor Diabetes: Most recent HgA1c at 6.3 Will hold metformin Continue insulin sliding scale with novolog Continue monitor BS Dyslipidemia: Continue atorvastatin 20 mg daily HTN (hypertension): BP stable Continue lisinopril 10 mg daily Anxiety: Continue Effexor 225 mg daily DVT prophylaxis: Continue Lovenox subq CODE Status DNR Disposition: Will discharge once medically stable, likely in next 24-48 hrs Admission and Anticipated Discharge Date Admission Date: November 18, 2020 Subjective Pt was seen and examined for follow up of SOB , COVID 19 pna Sitting up in bed, in NAD. Says she feels better. Reports using IS and flutter valve. She has NC applied but is actually on RA. 2 step ordered Nocturnal pulse ox obtained Review of Systems Review of Systems: All systems reviewed & are unremarkable except as noted in HPI & below Constitutional: no fever and no chills Respiratory: + cough (improved) and + dyspnea (improved) Cardiovascular: no chest pain and no palpitations Gastrointestinal: no abdominal pain, no nausea and no vomiting Physical Exam Physical Exam: General- elderly female sitting up in bed, in no acute distress, currently on RA Head- atraumatic Eyes- PERRL, EOMI, ENT- oropharynx clear Neck- supple, no JVD Lungs- very mild rhonchi noted, no wheezing Heart- regular rhythm; no murmur Abdomen- normal bowel sounds, soft, nontender Extremities- no calf tenderness Neuro- alert, oriented x 3; PERRL, EOMI; no facial palsy; no dysarthria, moves extremities Skin- warm & dry Results & Data Results & Data ([facility]) Vital Signs (Past 12 Hours) Vital Signs Temp Pulse Pulse Pulse Pulse Resp BP 11/26/20 08:00 71 11/26/20 07:10 36.5 C 73 16 113/70 11/26/20 05:31 69 11/26/20 03:21 90 11/26/20 02:34 36.5 C 75 16 11/25/20 23:36 79 11/25/20 23:07 36.7 C 78 18 11/25/20 22:10 88 BP Pulse Ox Pulse Ox 11/26/20 08:00 11/26/20 07:10 94 11/26/20 05:31 96 11/26/20 03:21 93 11/26/20 02:34 134/68 93 11/25/20 23:36 11/25/20 23:07 104/65 93 11/25/20 22:10 90 Laboratory Results 11/26/20 11/26/20 11/26/20 Range/Units 07:30 07:15 07:15 WBC (4.8-10.8) K/uL RBC (4.2-5.4) M/uL Hgb (12.0-16.0) g/dL Hct (37-47) % MCV (80-100) fL MCH (25-34) pg MCHC (32-36) g/dL RDW Std Deviation (36.4-46.3) fL RDW Coeff of Irasema (11.5-14.5) % Plt Count (130-400) K/uL MPV (7.4-10.4) fL ESR 33 H (0-21) mm/hr Sodium (136-145) mmol/L Potassium (3.5-5.1) mmol/L Chloride (98-107) mmol/L Carbon Dioxide (21-32) mmol/L Anion Gap (3-11) BUN (7-18) mg/dl Creatinine (0.6-1.2) mg/dl Est Cr Clr Drug Dosing ml/min Est GFR ( Amer) Est GFR (Non-Af Amer) BUN/Creatinine Ratio (10-20) Glucose (70-99) mg/dl POC Glucose 113 H (70-99) mg/dl Calcium (8.5-10.1) mg/dl Phosphorus (2.5-4.9) mg/dl Magnesium (1.8-2.4) mg/dl C-Reactive Protein (0-0.29) mg/dl Procalcitonin < 0.05 (0-0.5) ng/ml 11/26/20 11/26/20 11/25/20 Range/Units 07:15 07:15 23:37 WBC 9.50 (4.8-10.8) K/uL RBC 3.98 L (4.2-5.4) M/uL Hgb 11.5 L (12.0-16.0) g/dL Hct 34.1 L (37-47) % MCV 85.7 (80-100) fL MCH 28.9 (25-34) pg MCHC 33.7 (32-36) g/dL RDW Std Deviation 42.1 (36.4-46.3) fL RDW Coeff of Irasema 13.4 (11.5-14.5) % Plt Count 491 H (130-400) K/uL MPV 9.3 (7.4-10.4) fL ESR (0-21) mm/hr Sodium 136 (136-145) mmol/L Potassium 4.7 (3.5-5.1) mmol/L Chloride 102 (98-107) mmol/L Carbon Dioxide 30 (21-32) mmol/L Anion Gap 4.0 (3-11) BUN 20 H (7-18) mg/dl Creatinine 0.71 (0.6-1.2) mg/dl Est Cr Clr Drug Dosing 40.9 ml/min Est GFR ( Amer) 91.3 Est GFR (Non-Af Amer) 78.8 BUN/Creatinine Ratio 27.7 H (10-20) Glucose 113 H (70-99) mg/dl POC Glucose 161 H (70-99) mg/dl Calcium 9.1 (8.5-10.1) mg/dl Phosphorus 4.1 (2.5-4.9) mg/dl Magnesium 1.9 (1.8-2.4) mg/dl C-Reactive Protein 1.21 H (0-0.29) mg/dl Procalcitonin (0-0.5) ng/ml 11/25/20 11/25/20 11/25/20 Range/Units 20:07 20:07 16:40 WBC (4.8-10.8) K/uL RBC (4.2-5.4) M/uL Hgb (12.0-16.0) g/dL Hct (37-47) % MCV (80-100) fL MCH (25-34) pg MCHC (32-36) g/dL RDW Std Deviation (36.4-46.3) fL RDW Coeff of Irasema (11.5-14.5) % Plt Count (130-400) K/uL MPV (7.4-10.4) fL ESR (0-21) mm/hr Sodium (136-145) mmol/L Potassium (3.5-5.1) mmol/L Chloride (98-107) mmol/L Carbon Dioxide (21-32) mmol/L Anion Gap (3-11) BUN (7-18) mg/dl Creatinine (0.6-1.2) mg/dl Est Cr Clr Drug Dosing ml/min Est GFR ( Amer) Est GFR (Non-Af Amer) BUN/Creatinine Ratio (10-20) Glucose (70-99) mg/dl POC Glucose 331 H* 330 H* 203 H (70-99) mg/dl Calcium (8.5-10.1) mg/dl Phosphorus (2.5-4.9) mg/dl Magnesium (1.8-2.4) mg/dl C-Reactive Protein (0-0.29) mg/dl Procalcitonin (0-0.5) ng/ml 11/25/20 11/25/20 11/25/20 Range/Units 11:51 11:17 11:16 WBC (4.8-10.8) K/uL RBC (4.2-5.4) M/uL Hgb (12.0-16.0) g/dL Hct (37-47) % MCV (80-100) fL MCH (25-34) pg MCHC (32-36) g/dL RDW Std Deviation (36.4-46.3) fL RDW Coeff of Irasema (11.5-14.5) % Plt Count (130-400) K/uL MPV (7.4-10.4) fL ESR (0-21) mm/hr Sodium (136-145) mmol/L Potassium (3.5-5.1) mmol/L Chloride (98-107) mmol/L Carbon Dioxide (21-32) mmol/L Anion Gap (3-11) BUN (7-18) mg/dl Creatinine (0.6-1.2) mg/dl Est Cr Clr Drug Dosing ml/min Est GFR ( Amer) Est GFR (Non-Af Amer) BUN/Creatinine Ratio (10-20) Glucose (70-99) mg/dl POC Glucose 89 65 L* 61 L* (70-99) mg/dl Calcium (8.5-10.1) mg/dl Phosphorus (2.5-4.9) mg/dl Magnesium (1.8-2.4) mg/dl C-Reactive Protein (0-0.29) mg/dl Procalcitonin (0-0.5) ng/ml 11/25/20 Range/Units 08:23 WBC (4.8-10.8) K/uL RBC (4.2-5.4) M/uL Hgb (12.0-16.0) g/dL Hct (37-47) % MCV (80-100) fL MCH (25-34) pg MCHC (32-36) g/dL RDW Std Deviation (36.4-46.3) fL RDW Coeff of Irasema (11.5-14.5) % Plt Count (130-400) K/uL MPV (7.4-10.4) fL ESR (0-21) mm/hr Sodium 133 L (136-145) mmol/L Potassium 4.3 (3.5-5.1) mmol/L Chloride 99 (98-107) mmol/L Carbon Dioxide 28 (21-32) mmol/L Anion Gap 6.0 (3-11) BUN 17 (7-18) mg/dl Creatinine 0.67 (0.6-1.2) mg/dl Est Cr Clr Drug Dosing 43.4 ml/min Est GFR ( Amer) 94.2 Est GFR (Non-Af Amer) 81.3 BUN/Creatinine Ratio 25.7 H (10-20) Glucose 112 H (70-99) mg/dl POC Glucose (70-99) mg/dl Calcium 9.0 (8.5-10.1) mg/dl Phosphorus 3.9 (2.5-4.9) mg/dl Magnesium 1.5 L (1.8-2.4) mg/dl C-Reactive Protein (0-0.29) mg/dl Procalcitonin (0-0.5) ng/ml Medications Administered Current Inpatient Medications Acetaminophen (Acetaminophen 325 Mg Tab) 325 mg PO QID PRN PRN Reason: Pain Stop: 12/18/20 12:00 Last Admin: 11/22/20 12:32 Dose: 325 mg Documented by: Atorvastatin Calcium (Atorvastatin 20 Mg Tab) 20 mg PO QDL [facility] Stop: 12/18/20 12:00 Last Admin: 11/25/20 11:23 Dose: 20 mg Documented by: Dextrose (Dextrose 50% 50 Ml Syringe) 25 - 50 ml IV UD PRN; Protocol PRN Reason: Hypoglycemia Protocol Stop: 12/18/20 12:00 Doxycycline Hyclate (Doxycycline Hyclate 100 Mg Cap) 100 mg PO BID [facility] Stop: 11/29/20 14:14 Last Admin: 11/26/20 07:27 Dose: 100 mg Documented by: Enoxaparin Sodium (Enoxaparin Inj 40 Mg/0.4 Ml Syr) 40 mg SQ QAM [facility] Stop: 12/19/20 09:59 Last Admin: 11/26/20 07:30 Dose: 40 mg Documented by: Fish Oil ([place]-3 (Purified Fish Oil) 1 Gm Cap) 1 gm PO QAM [facility] Stop: 12/19/20 08:59 Last Admin: 11/26/20 07:28 Dose: 1 gm Documented by: Glucagon (Glucagon For Inj 1 Mg Vial) 1 mg SQ UD PRN; Protocol PRN Reason: Hypoglycemia Protocol Stop: 12/18/20 12:00 Glucose (Glucose 10 Tabs/Tube) 4 - 8 tabs PO UD PRN; Protocol PRN Reason: Hypoglycemia Protocol Stop: 12/18/20 12:00 Glucose (Glucose 40% Gel 15 Gm Tube) 15 - 30 gm PO UD PRN; Protocol PRN Reason: Hypoglycemia Protocol Stop: 12/18/20 12:00 Last Admin: 11/25/20 11:25 Dose: 15 gm Documented by: Guaifenesin (Guaifenesin 600 Mg Tabcr) 600 mg PO Q12 [facility] Stop: 12/23/20 20:59 Last Admin: 11/26/20 08:26 Dose: 600 mg Documented by: Dexamethasone 6 mg/ Syringe 1.5 mls @ 1 mls/min IV DAILY@1200 [facility] Stop: 12/18/20 12:29 Last Admin: 11/25/20 12:31 Dose: 1 mls/min Documented by: Ceftriaxone Sodium 1,000 mg/ (Dextrose) 50 mls @ 100 mls/hr IV Q24H [facility]; Protocol Stop: 11/29/20 14:14 Last Infusion: 11/25/20 13:45 Dose: Infused Documented by: Insulin Aspart (Insulin Aspart 100 Units/Ml 3 Ml Pen) 0 units SC ACHS [facility] Stop: 12/18/20 12:00 Last Admin: 11/26/20 08:24 Dose: 3 units Documented by: Insulin Glargine (Insulin Glargine Solostar 100 Units/Ml 3 Ml Pen) 5 units SC BID [facility] Stop: 12/25/20 20:59 Last Admin: 11/26/20 08:25 Dose: 5 units Documented by: Levothyroxine Sodium (Levothyroxine Sodium 25 Mcg Tablet) 25 mcg PO DAILYBB [facility] Stop: 12/19/20 06:29 Last Admin: 11/26/20 06:29 Dose: 25 mcg Documented by: Lisinopril (Lisinopril 10 Mg Tab) 10 mg PO QAM [facility] Stop: 12/19/20 08:59 Last Admin: 11/26/20 07:29 Dose: 10 mg Documented by: Loratadine (Loratadine 10 Mg Tab) 10 mg PO DAILY PRN PRN Reason: Congestion Stop: 12/18/20 12:00 Miscellaneous (Carbohydrates For Hypoglycemia ) 15 - 30 gm PO UD PRN PRN Reason: Hypoglycemia Protocol Stop: 12/18/20 12:00 Multivitamins/Minerals (Calcium 600mg + Vit D 400 Iu Tab) [facility] [place] Stop: 12/19/20 08:59 Last Admin: 11/26/20 07:27 Dose: 1 tab Documented by: Multivitamins/Minerals (Cerovite Adv Formula Tab) [facility] [place] Stop: 12/19/20 08:59 Last Admin: 11/26/20 07:27 Dose: 1 tab Documented by: Pantoprazole Sodium (Pantoprazole 40 Mg Tab) 40 mg PO [facility] Stop: 12/19/20 08:59 Last Admin: 11/26/20 07:29 Dose: 40 mg Documented by: Venlafaxine HCl (Venlafaxine Hcl Xr 75 Mg Capxr) 225 mg PO [facility] Stop: 12/19/20 08:59 Last Admin: 11/26/20 07:27 Dose: 225 mg Documented by:
[2020-11-26] MEDS: dexAMETHasone 6 MG in SYRINGE 0 ML IV SCH (11:42)
[2020-11-26] MEDS: ATORVASTATIN 20 MG TAB PO SCH (11:42)
[2020-11-26] MEDS: cefTRIAXone SODIUM 1,000 MG in DEXTROSE 5% 50 ML IV SCH (13:49)
[2020-11-27] MEDS: LEVOTHYROXINE SODIUM 25 MCG TABLET PO SCH (06:04)
[2020-11-27] MEDS: CALCIUM 600MG + VIT D 400 IU TAB PO SCH (07:40)
[2020-11-27] MEDS: VENLAFAXINE HCL XR 75 MG CAPXR PO SCH (07:40)
[2020-11-27] MEDS: lisinopril 10 MG TAB PO SCH (07:41)
[2020-11-27] MEDS: PANTOprazole 40 MG TAB PO SCH (07:41)
[2020-11-27] MEDS: CEROVITE ADV FORMULA TAB PO SCH (07:41)
[2020-11-27] MEDS: DOXYCYCLINE HYCLATE 100 MG CAP PO SCH (07:41)
[2020-11-27] MEDS: guaiFENesin 600 MG TABCR PO SCH (07:41)
[2020-11-27] MEDS: OMEGA-3 (PURIFIED FISH OIL) 1 GM CAP PO SCH (07:41)
[2020-11-27] MEDS: ENOXAPARIN INJ 40 MG/0.4 ML SYR SQ SCH (07:41)
[2020-11-27] MEDS: INSULIN ASPART 100 UNITS/ML 3 ML PEN SC SCH ×2 (07:54→11:56)
[2020-11-27] MEDS: INSULIN GLARGINE SOLOSTAR 100 UNITS/ML 3 ML PEN SC SCH (07:55)
[2020-11-27 08:01] LABS: BUN Creatinine Ratio 27.8 (10-20); Calcium 8.2 mg/dl (8.5-10.1); Creatinine Clr Calc Pharmacy 40.4 ml/min; Est GFR (African American) 89.8; Est GFR (Non-African American) 77.4; Magnesium 1.8 mg/dl (1.8-2.4); Potassium 4.4 mmol/L (3.5-5.1)
[2020-11-27] MEDS: ATORVASTATIN 20 MG TAB PO SCH (11:54)
[2020-11-27] MEDS: dexAMETHasone 6 MG in SYRINGE 0 ML IV SCH (11:54)
[2020-11-27] MEDS: cefTRIAXone SODIUM 1,000 MG in DEXTROSE 5% 50 ML IV SCH (13:29)
--- NOTE | 2020-11-27 14:54 | Hospitalist Progress Note ---
Date of Service November 27, 2020 Assessment & Plan (1) COVID-19: (2) SOB (shortness of breath): (1) COVID-19: (2) SOB (shortness of breath): Acute hypoxemic respiratory failure due to COVID-19: Patient is 84 y/o female with past medical history of diabetes mellitus type 2, hypertension, hyperlipidemia and anxiety presented to the ED with worsening shortness of breath, fever and weakness. Pt was discharged home night before re-admission , on oxygen supplement at HS CXR showed slight increase in mild bilateral airspace opacities which favor an infectious process such as viral pneumonia. Continue decadron 6mg IV Continue oxygen supplement out of the window for remdesivir and convalescent plasma Ferritin 406 --> 446--> ferritin 439, C-reactive 13.8--> 7.6-->3.2 and ESR 23--> 37 -->35 Procalcitonin negative Now pt again developed fever (11/22), CXR repeated - c/w worsening multifocal pna started Abx ceftriaxone and doxy Currently on RA 2 step ordered Overnight pulse oximetry done in the last admission and pt requires oxygen at HS Nocturnal pulse ox ordered continue monitor closely Hypomagnesemia: Mg 1.6 on admission replace and monitor Diabetes: Most recent HgA1c at 6.3 Will hold metformin Continue insulin sliding scale with novolog Continue monitor BS Dyslipidemia: Continue atorvastatin 20 mg daily HTN (hypertension): BP stable Continue lisinopril 10 mg daily Anxiety: Continue Effexor 225 mg daily DVT prophylaxis: Continue Lovenox subq CODE Status DNR Disposition: Plan to DC home Admission and Anticipated Discharge Date Admission Date: November 18, 2020 Subjective Pt was seen and examined for follow up of SOB , COVID 19 pna Sitting up in bed, in NAD. Says she feels better. Reports using IS and flutter valve. She is currently on room air, at rest, will up with the nurse, and after walking she was still satting 94% on room air without any supplemental oxygen. She feels well, excited about going home. 2 step ordered -recommend 2 L with exertion. Nocturnal pulse ox obtained-Per updated study, does not qualify for O2 at night. Review of Systems Review of Systems: All systems reviewed & are unremarkable except as noted in HPI & below Constitutional: no fever and no chills Respiratory: no cough and no dyspnea Cardiovascular: no chest pain and no palpitations Gastrointestinal: no abdominal pain, no nausea and no vomiting Physical Exam Physical Exam: General- elderly female sitting up in chair in no acute distress, currently on RA Head- atraumatic Eyes- PERRL, EOMI, ENT- oropharynx clear Neck- supple, no JVD Lungs- CTAB, no rhonchi or wheezing noted Heart- regular rhythm; no murmur Abdomen- normal bowel sounds, soft, nontender Extremities- no calf tenderness Neuro- alert, oriented x 3; PERRL, EOMI; no facial palsy; no dysarthria, moves extremities Skin- warm & dry Results & Data Results & Data ([facility]) Vital Signs (Past 12 Hours) Vital Signs Temp Pulse Pulse Pulse Resp BP BP 11/27/20 14:06 36.5 C 74 52 L 18 100/58 L 107/63 11/27/20 13:27 11/27/20 11:10 36.5 C 74 18 100/58 L 11/27/20 08:00 36.6 C 71 18 126/68 11/27/20 07:24 80 11/27/20 04:20 36.6 C 74 18 123/73 11/27/20 03:54 88 Pulse Ox 11/27/20 14:06 94 11/27/20 13:27 94 11/27/20 11:10 94 11/27/20 08:00 98 11/27/20 07:24 11/27/20 04:20 99 11/27/20 03:54 Laboratory Results 11/27/20 11/27/20 11/27/20 Range/Units 11:41 11:39 07:44 Sodium (136-145) mmol/L Potassium (3.5-5.1) mmol/L Chloride (98-107) mmol/L Carbon Dioxide (21-32) mmol/L Anion Gap (3-11) BUN (7-18) mg/dl Creatinine (0.6-1.2) mg/dl Est Cr Clr Drug Dosing ml/min Est GFR ( Amer) Est GFR (Non-Af Amer) BUN/Creatinine Ratio (10-20) Glucose (70-99) mg/dl POC Glucose 74 67 L* 87 (70-99) mg/dl Calcium (8.5-10.1) mg/dl Magnesium (1.8-2.4) mg/dl 11/27/20 11/26/20 11/26/20 Range/Units 07:15 20:15 16:29 Sodium 137 (136-145) mmol/L Potassium 4.4 (3.5-5.1) mmol/L Chloride 103 (98-107) mmol/L Carbon Dioxide 32 (21-32) mmol/L Anion Gap 2.0 L (3-11) BUN 20 H (7-18) mg/dl Creatinine 0.72 (0.6-1.2) mg/dl Est Cr Clr Drug Dosing 40.4 ml/min Est GFR ( Amer) 89.8 Est GFR (Non-Af Amer) 77.4 BUN/Creatinine Ratio 27.8 H (10-20) Glucose 92 (70-99) mg/dl POC Glucose 244 H 252 H (70-99) mg/dl Calcium 8.2 L (8.5-10.1) mg/dl Magnesium 1.8 (1.8-2.4) mg/dl Medications Administered Current Inpatient Medications Acetaminophen (Acetaminophen 325 Mg Tab) 325 mg PO QID PRN PRN Reason: Pain Stop: 12/18/20 12:00 Last Admin: 11/22/20 12:32 Dose: 325 mg Documented by: Atorvastatin Calcium (Atorvastatin 20 Mg Tab) 20 mg PO QDL [facility] Stop: 12/18/20 12:00 Last Admin: 11/27/20 11:54 Dose: 20 mg Documented by: Dextrose (Dextrose 50% 50 Ml Syringe) 25 - 50 ml IV UD PRN; Protocol PRN Reason: Hypoglycemia Protocol Stop: 12/18/20 12:00 Doxycycline Hyclate (Doxycycline Hyclate 100 Mg Cap) 100 mg PO BID [facility] Stop: 11/29/20 14:14 Last Admin: 11/27/20 07:41 Dose: 100 mg Documented by: Enoxaparin Sodium (Enoxaparin Inj 40 Mg/0.4 Ml Syr) 40 mg SQ QAM [facility] [place] Stop: 12/19/20 09:59 Last Admin: 11/27/20 07:41 Dose: 40 mg Documented by: Fish Oil ([place]-3 (Purified Fish Oil) 1 Gm Cap) 1 gm PO QAM [facility] [place] Stop: 12/19/20 08:59 Last Admin: 11/27/20 07:41 Dose: 1 gm Documented by: Glucagon (Glucagon For Inj 1 Mg Vial) 1 mg SQ UD PRN; Protocol PRN Reason: Hypoglycemia Protocol Stop: 12/18/20 12:00 Glucose (Glucose 10 Tabs/Tube) 4 - 8 tabs PO UD PRN; Protocol PRN Reason: Hypoglycemia Protocol Stop: 12/18/20 12:00 Glucose (Glucose 40% Gel 15 Gm Tube) 15 - 30 gm PO UD PRN; Protocol PRN Reason: Hypoglycemia Protocol Stop: 12/18/20 12:00 Last Admin: 11/25/20 11:25 Dose: 15 gm Documented by: Guaifenesin (Guaifenesin 600 Mg Tabcr) 600 mg PO Q12 [facility] [place] Stop: 12/23/20 20:59 Last Admin: 11/27/20 07:41 Dose: 600 mg Documented by: Dexamethasone 6 mg/ Syringe 1.5 mls @ 1 mls/min IV DAILY@1200 [facility] [place] Stop: 12/18/20 12:29 Last Admin: 11/27/20 11:54 Dose: 1 mls/min Documented by: Ceftriaxone Sodium 1,000 mg/ (Dextrose) 50 mls @ 100 mls/hr IV Q24H [facility] [place]; Protocol Stop: 11/29/20 14:14 Last Infusion: 11/27/20 14:11 Dose: Infused Documented by: Insulin Aspart (Insulin Aspart 100 Units/Ml 3 Ml Pen) 0 units SC ACHS [facility] [place] Stop: 12/18/20 12:00 Last Admin: 11/27/20 11:56 Dose: 3 units Documented by: Insulin Glargine (Insulin Glargine Solostar 100 Units/Ml 3 Ml Pen) 5 units SC BID [facility] [place] Stop: 12/25/20 20:59 Last Admin: 11/27/20 07:55 Dose: 5 units Documented by: Levothyroxine Sodium (Levothyroxine Sodium 25 Mcg Tablet) 25 mcg PO DAILYBB [facility] Stop: 12/19/20 06:29 Last Admin: 11/27/20 06:04 Dose: 25 mcg Documented by: Lisinopril (Lisinopril 10 Mg Tab) 10 mg PO QAM [facility] Stop: 12/19/20 08:59 Last Admin: 11/27/20 07:41 Dose: 10 mg Documented by: Loratadine (Loratadine 10 Mg Tab) 10 mg PO DAILY PRN PRN Reason: Congestion Stop: 12/18/20 12:00 Miscellaneous (Carbohydrates For Hypoglycemia ) 15 - 30 gm PO UD PRN PRN Reason: Hypoglycemia Protocol Stop: 12/18/20 12:00 Multivitamins/Minerals (Calcium 600mg + Vit D 400 Iu Tab) 1 tab PO QAM [facility] Stop: 12/19/20 08:59 Last Admin: 11/27/20 07:40 Dose: 1 tab Documented by: Multivitamins/Minerals (Cerovite Adv Formula Tab) [facility] Stop: 12/19/20 08:59 Last Admin: 11/27/20 07:41 Dose: 1 tab Documented by: Pantoprazole Sodium (Pantoprazole 40 Mg Tab) 40 mg [facility] Stop: 12/19/20 08:59 Last Admin: 11/27/20 07:41 Dose: 40 mg Documented by: Venlafaxine HCl (Venlafaxine Hcl Xr 75 Mg Capxr) 225 mg [facility] Stop: 12/19/20 08:59 Last Admin: 11/27/20 07:40 Dose: 225 mg Documented by:
--- NOTE | 2020-11-27 15:05 | Discharge Summary ---
Date of Service November 27, 2020 Admission HPI Per Admitting Provider This is 84 yo F with PMHx of DM II, HLD, anxiety, nausea and breast cancer who presents with several complaints including weakness, shortness of breath, headache and nausea/vomiting to the ER. History is obtained from her niece, Aysha via phone in the ER room, as the patient is COVID-19 positive. On Friday, pt began feeling worse with increased weakness and shortness of breath, and at baseline does not require O2. Last evening developed nausea and vomiting, so her niece made her an appointment with PCP, however after conversation with PCP nurse, they preferred that she went to the ER and sent her here. Aysha denies any known COVID-19 contacts, as she lives with the patient who does not travel or goes out, as she does basic things like grocery shopping, etc, due to the COVID-19 pandemic. She reports pt had a low grade fever of 100, headache, poor appetite, stomach pain, but no diarrhea. Pt took morning medications and has not had issues keeping them down. Admission Exam Per Admitting Provider General- No acute distress Head- atraumatic Eyes- PERRL, EOMI, ENT- oropharynx clear Neck- supple, no JVD Lungs- diminished BS Heart- regular rhythm; no murmur Abdomen- normal bowel sounds, soft, nontender Extremities- no calf tenderness Neuro- alert, oriented x 3; PERRL, EOMI; no facial palsy; no dysarthria Skin- warm & dry Principal Diagnosis Acute hypoxemic respiratory failure due to COVID-19 pna Discharge Exam General- elderly female sitting up in chair in no acute distress, currently on RA Head- atraumatic Eyes- PERRL, EOMI, ENT- oropharynx clear Neck- supple, no JVD Lungs- CTAB, no rhonchi or wheezing noted Heart- regular rhythm; no murmur Abdomen- normal bowel sounds, soft, nontender Extremities- no calf tenderness Neuro- alert, oriented x 3; PERRL, EOMI; no facial palsy; no dysarthria, moves extremities Skin- warm & dry Discharge Data Allergies Allergy/AdvReac Type Severity Reaction Status Date / Time Sulfa (Sulfonamide Allergy Severe DIFFICULTY Verified 11/18/20 08:10 Antibiotics) BREATHING sulfamethoxazole Allergy Severe DIFFICULTY Verified 11/18/20 08:10 BREATHING Consultations 11/18/20 08:00 ED Decision to Admit Stat Hospital Course (1) COVID-19: (2) SOB (shortness of breath): (1) COVID-19: (2) SOB (shortness of breath): Acute hypoxemic respiratory failure due to COVID-19: Patient is 84 y/o female with past medical history of diabetes mellitus type 2, hypertension, hyperlipidemia and anxiety presented to the ED with worsening shortness of breath, fever and weakness. Pt was discharged home night before re-admission , on oxygen supplement at HS CXR showed slight increase in mild bilateral airspace opacities which favor an infectious process such as viral pneumonia. Continue decadron 6mg IV Continue oxygen supplement out of the window for remdesivir and convalescent plasma Ferritin 406 --> 446--> ferritin 439, C-reactive 13.8--> 7.6-->3.2 and ESR 23--> 37 -->35 Procalcitonin negative Now pt again developed fever (11/22), CXR repeated - c/w worsening multifocal pna started Abx ceftriaxone and doxy Currently on RA 2 step ordered -recommend 2 L with exertion Overnight pulse oximetry done in the last admission and pt requires oxygen at HS Nocturnal pulse ox ordered-no longer qualifies for oxygen at night Patient is currently resting on room air, comfortable, walked with the nursing staff, and saturating 94% on room air She feels well overall, denies any chest pain shortness of breath dizziness with walking, she is excited to go home. Hypomagnesemia: Mg 1.6 on admission replace and monitor Diabetes: Most recent HgA1c at 6.3 Will hold metformin Continue insulin sliding scale with novolog Continue monitor BS Dyslipidemia: Continue atorvastatin 20 mg daily HTN (hypertension): BP stable Continue lisinopril 10 mg daily Anxiety: Continue Effexor 225 mg daily DVT prophylaxis: Continue Lovenox subq CODE Status DNR Disposition: Plan to DC home Total Time Total Time Spent Total Time Spent (In Minutes): 35 Total Time Includes: Examination of the Patient, Discharge Planning and Medication Reconciliation Discharge Plan Discharge Items Patient Disposition: Home - Home Health Services Reason For Visit: FEVER,SOB Discharge Diagnosis: Acute hypoxemic respiratory failure due to COVID-19 pna Activity: Per Instructions section Non-emergency contact: Primary Care Provider Call non-emergency contact if: you have any medication questions and your symptoms worsen Follow-up/Referrals: Emory Mills MD [Primary Care Provider] - (Date & Time 12/01/2020 2:00 PM Provider Emory Mills III, MD Department [facility] ) Diet: Carb Consistent or DM2 Addtl Attending Provider Instructions: Follow-up with your primary care doctor, [birth year]. Have a happy birthday! This may be telemedicine visit. I would recommend that you take Mucinex for next couple of days. I would also recommend that you use your incentive spirometer and flutter valve for next several days as well. Use oxygen as needed with exertion/walking, it is recommended you use 2 L of oxygen via nasal cannula. Check your pulse ox at home, your oxygen saturation should be about 92% or higher. You can also use supplemental oxygen at night when you sleep. You should not need any oxygen when you are resting and awake. Pending Studies at Discharge: No Stand-Alone Forms: My [facility] [employer], Smoking Cessation Medications and DC Order Prescriptions: New guaifenesin [Mucinex] 600 mg Tablet Extended Release 12hr 600 mg PO Q12 Qty: 10 RF: 0 Continued metformin 500 mg tablet 1,000 mg PO QAM RF: 0 venlafaxine 75 mg capsule,extended release 24hr 225 mg PO QAM RF: 0 atorvastatin 20 mg tablet 20 mg PO QDL RF: 0 alendronate 70 mg tablet 70 mg PO WK RF: 0 calcium carbonate-vitamin D3 [Calcium 600 + D(3)] 600 mg(1,500mg) -200 unit Tablet 1 tab PO QAM RF: 0 levothyroxine 25 mcg tablet 25 mcg PO QAM RF: 0 lisinopril 10 mg tablet 10 mg PO QAM RF: 0 multivitamin with minerals Tablet 1 tab PO QAM RF: 0 loratadine [Claritin] 10 mg Tablet 10 mg PO DAILY PRN (Reason: Congestion) RF: 0 omega 5-rig-drw-fish oil [Fish Oil] 1,000 mg (120 mg-180 mg) Capsule 1 cap PO QAM RF: 0 (DME) Oxygen Home Liters Per Minute See Rx Instructions .ROUTE .COMPLEX Qty: 1 RF: 0 prednisone 10 mg tablet 10 mg PO UD Qty: 10 RF: 0 acetaminophen [Tylenol] 325 mg Tablet 325 mg PO QID PRN (Reason: Pain) RF: 0 pantoprazole 20 mg tablet,delayed release (DR/EC) 20 mg PO QAM RF: 0 Discharge Orders: Discharge Order (Routine); Ordered 11/27/20 Ordered By: Surinder Sinclair Admission Data Admit Date/Time: 11/18/20 10:05 Attending Provider: Surinder Sinclair Admit Provider: Melissa Wheeler Primary Care Provider: Emory Mills Other Providers: Melissa Wheeler Other Interventions: Discharge Summary Assessment (RN) Last Done: 11/27/20 14:06
== END 2020-11-27 17:31 | disposition home health service (06) | DRG 177 ==
LOC: ED 06:40 → 2N 10:05 → SUATTDRO 10:05 → 2N 11:44